=== PATIENT | female | born 1990 | race Caucasian/White ===

== ENCOUNTER → 2024-08-31 15:23 | Outpatient (CLI) | payer OTHER, SELFPAY ==
--- NOTE | 2024-09-01 13:33 | DIET.OUTPTC ---
Dietary Outpatient Consultation Note Consultation Date: 09/01/2024 Assessment: 34 y F referred to dietitian for obesity. Melisa is 8 months . Wants to ensure she is getting adequate nutrition for while supporting good health and would like to explore more variety in diet/cooking variety. Hx of yo-yo dieting with little fci success. Struggling with body image. Note no current N/V/D/C. Reports around a year ago having abd pain and some bloody stools with 2 colonoscopies done with no significant findings besides being told she was lactose intolerant. However, has had dairy recently with no symptoms. Diet recall: 8-9a- coffee, wilder, 2 eggs L-skips - struggling to have time to eat herself with baby Snack (~4p): granola bar or pieces of deli turkey D-meat/poultry and green beans Feels hungry with 1 hour after dinner, has snacks Ht: 5 ft 6 in Wt: 194 lb 2 oz BMI: 31.3 UBW: - Nutrition Diagnosis: Nutrition related knowledge deficit r/t no formal nutrition educ, difficulty finding sustainable eating pattern aeb pt report Interventions: discussed following topics and provided resources 1. Intuitive eating/sustainable eating 2. Macro distribution/Balanced meals in line with Mediterranean pattern/myplate method 3. Importance of carbs, portion of carbs, choosing carbs, fiber, amounts, types 4. Brainstorming new meals to create variety Goals: 1. Have a no-prep needed lunch with carb/protein/fiber (options and barriers discussed) 2. Include whole grain carb/starchy veg into dinner (2/3-1c) 3. Try new dinner recipe 1-2x/wk Monitoring/Evaluations: f/u 6-8 wks Electronically Signed by: Elda Cunningham 09/01/24 13:33 Clinical Dietitian [address] [address]
== END ==
PROVIDERS: PCP Family Medicine; Referring Provider Family Medicine
DX: E66.811 Obesity, class 1 (principal); Z68.31 Body mass index [BMI] 31.0-31.9, adult; Z71.3 Dietary counseling and surveillance
CPT/HCPCS: 97802

== ENCOUNTER → 2025-01-08 11:38 | Outpatient (CLI) | payer OTHER, SELFPAY ==
--- NOTE | 2025-01-08 11:39 | DI.RAD.S_ITS ---
PROCEDURE: XR ANKLE LT MIN 3V INDICATIONS: left ankle injury TECHNIQUE: 3 views of the ankle were acquired. COMPARISON: None. FINDINGS: Bones: No fractures or dislocations. Ankle mortise is normally aligned. No suspicious bony lesions. Soft tissues: No tibiotalar joint effusion. Achilles tendon appears normal. IMPRESSION: No acute bony abnormality or significant effusion. Dictated by: Palomo Wilkinson M.D. on 01/08/2025 at 12:23 Approved by: Palomo Wilkinson M.D. on 01/08/2025 at 12:23
== END ==
PROVIDERS: PCP Family Medicine; Referring Provider Physician Assistant; Visit Provider Physician Assistant
DX: S99.912A Unspecified injury of left ankle, initial encounter (principal)
CPT/HCPCS: 73610

== ENCOUNTER → 2025-01-18 16:29 | Outpatient (CLI) | payer OTHER, SELFPAY ==
[2025-01-18 16:50] LABS: Add Manual Diff / Slide Review NO; Basophils Absolute Auto 0 /uL (0-100); Basophils Percent Auto 0.4 % (0-2); Eosinophils Absolute Auto 100 /uL (0-450); Eosinophils Percent Auto 0.8 % (2-4); Hematocrit 35.8 % (36-46); Hemoglobin 12.1 g/dL (12.0-16.0); Lymphocytes Absolute Auto 2300 /uL (1100-4500); Lymphocytes Percent Auto 25.3 % (25-40); Mean Corpuscular HGB Conc 33.8 % (30-36); Mean Corpuscular Hemoglobin 28.7 PG (26-34); Mean Corpuscular Volume 84.9 fL (80-100); Monocytes Absolute Auto 600 /uL (0-900); Monocytes Percent Auto 6.4 % (3-14); Neutrophils Absolute Auto 6100 /uL (1500-7000); Neutrophils Percent Auto 67.1 % (50-75); Platelet Count 334 X10^3/uL (150-400); Red Blood Cell Count 4.21 X10^6/uL (4.0-5.2); Red Cell Distribution Width 13.1 % (11.6-14.8); White Blood Cell Count 9.1 X10^3/uL (4.5-11.0)
[2025-01-18 17:32] LABS: Alanine Aminotransferase 23 IU/L (<35); Albumin 4.6 g/dL (3.5-5.0); Albumin Globulin Ratio 1.9 (1.0-2.8); Alkaline Phosphatase 74 U/L (38-126); Aspartate Aminotransferase 27 IU/L (14-36); BUN Creatinine Ratio 14.5 (6-22); Bilirubin Total 0.4 mg/dL (0.2-1.3); Blood Urea Nitrogen 11 mg/dL (7-17); Calcium 9.4 mg/dL (8.4-10.2); Carbon Dioxide 22 mmol/L (22-32); Chloride 106 mmol/L (98-107); Cholesterol 186 mg/dL (140-199); Estimated Glomerular Filt Rate > 60 mL/min (>60); Globulin 2.4 g/dL (1.7-4.1); Glucose 100 mg/dL (70-99); HDL Cholesterol 65 mg/dL (40-60); HEMOLYSIS < 15 (0-50); LDL Cholesterol Calculated 101 mg/dL (<100); Potassium 4.2 mmol/L (3.4-5.1); Sodium 138 mmol/L (137-145); Triglycerides 100 mg/dL (35-150)
== END ==
LOC: LAB 16:30
PROVIDERS: Family Provider Family Medicine; PCP Family Medicine; Referring Provider Family Medicine; Visit Provider Family Medicine
DX: E78.5 Hyperlipidemia, unspecified (principal); E66.811 Obesity, class 1
CPT/HCPCS: 36415; 80053; 80061; 85025

== ENCOUNTER 2025-04-25 16:15 | Outpatient (RCR) | payer OTHER, SELFPAY ==
--- NOTE | 2025-02-08 18:09 | PT.OIE ---
Current Diagnoses Unspecified injury of left ankle, initial encounter (02/08/25) Past Medical History (Last Updated 06/14/24 @ 20:15 by Tangela Townsend) Ankle pain (~2005) Depression (~2002) AAKASH (generalized anxiety disorder) (~2017) GERD (gastroesophageal reflux disease) Heavy menstrual period (~2014) Irritable bowel syndrome (~2018) MDD (major depressive disorder) Neck muscle spasm (~2014) Ovarian cyst (~2019) Painful menstrual periods (~2014) Visit Care Team Role Provider Type Amelia Lutz MD Attending Provider Physician Family Provider Primary Care Provider Referring Provider Specialty: Family Practice CHIEF SCIENCE OFFICER Address: [address] [place] [address], [id number] Email: [email or web address] Physical Therapy Initial Evaluation PT-OP-A Visit Information Start: 02/08/25 15:37 Freq: Status: Active Protocol: Document 02/08/25 15:46 MANAGED CARE SPECIALIST (Rec: 02/08/25 18:06 MANAGED CARE SPECIALIST Laptop) Out-Patient Physical Therapy Visit Information Visit Information Visit Type Initial Evaluation Visit Start Time 16:15 Visit Stop Time 15:13 Visit Number 1 Number of RENEWABLE ENERGY TRADER Visits 0 Evaluation Information Evaluation Date 02/08/25 Precautions Precautions None PT-OP-B Current Condition Start: 02/08/25 15:37 Freq: Status: Active Protocol: Document 02/08/25 15:46 MANAGED CARE SPECIALIST (Rec: 02/08/25 18:06 MANAGED CARE SPECIALIST Laptop) Current Condition History of Current Condition Onset Date 01/07/25 Current Complaints L ankle pain/instability History of Current Condition Was trying to get something off of a tall cabinet, jumped, and landed down on L ankle with pain. Has had multiple ankle sprains in B ankles from soccer in high school and can often walk them off but this time could not. Had a walking boot that she wore for 10 days per doctor, then bought a supportive TOMMIE brace that she wore but still feels very instable. Has a 1 year old baby at home, not currently working. Has 5 RITESH with L HR, 2 stairs into sons room with L HR. Prior Treatments and Tests Imaging negative for fx Treatment Goals Patient/Caregiver Goals To be able to move around again without ankle feeling unstable and being careful, including navigating stairs at home. [facility] goal is to be able to run for exercise again. PT-OP-C Subjective Start: 02/08/25 15:37 Freq: Status: Active Protocol: Document 02/08/25 15:46 MANAGED CARE SPECIALIST (Rec: 02/08/25 18:06 MANAGED CARE SPECIALIST Laptop) Patient Questionnaires Lower Extremity Functional Scale LEFS Score 58/80 OP-PT Pain Assessment Comments Pain Comments L ankle feels achy while amb , 3-4/5 to L lateral malleoli and up lateral lower leg PT-OP-D Balance Start: 02/08/25 15:37 Freq: Status: Active Protocol: Document 02/08/25 15:46 MANAGED CARE SPECIALIST (Rec: 02/08/25 18:06 MANAGED CARE SPECIALIST Laptop) Balance Tests Single Limb Standing Single Limb- Right 57s Single Limb- Left 15s PT-OP-F Manual Assessment Start: 02/08/25 15:37 Freq: Status: Active Protocol: Document 02/08/25 15:46 MANAGED CARE SPECIALIST (Rec: 02/08/25 18:06 MANAGED CARE SPECIALIST Laptop) Manual Assessments Soft Tissue Assessment Soft Tissue Mobility Assessment TTP to L ant tib muscle belly and L fib longus muscle belly/ tendon, mild edema noted to L lateral malleolus PT-OP-G Mobility & Gait Start: 02/08/25 15:37 Freq: Status: Active Protocol: Document 02/08/25 15:46 MANAGED CARE SPECIALIST (Rec: 02/08/25 18:06 MANAGED CARE SPECIALIST Laptop) OP Gait Assessment Comments Gait Comments Amb without AD, decreased L loading response and early toe off Stair Climbing Evaluation Comments Stair Climbing Comments 4x6 stairs: Ascend: Normal reciprocal pattern without rails Descend: Step to pattern leading with RLE with heavy reliance on BUEs d/t instability in R ankle PT-OP-K Range of Motion Start: 02/08/25 15:45 Freq: Status: Active Protocol: Document 02/08/25 15:46 MANAGED CARE SPECIALIST (Rec: 02/08/25 18:06 MANAGED CARE SPECIALIST Laptop) Knee Goniometric Range of Motion Knee ROM Limitations Comments WNL Ankle and Foot Goniometric Range of Motion Ankle and Foot ROM Limitations ROM Limitations Soft Tissue Tightness,Pain Comments L ankle active DF -10 degrees, passive DF 15 degrees R ankle active DF 3 degrees, passive DF 8 degrees L PF active 45 degrees R PF active 50 degrees L eversion active 28 degrees, inversion active 42 degrees R eversion active 28 degrees, inversion active 44 degrees PT-OP-M Strength Start: 02/08/25 15:45 Freq: Status: Active Protocol: Document 02/08/25 15:46 MANAGED CARE SPECIALIST (Rec: 02/08/25 18:06 MANAGED CARE SPECIALIST Laptop) Hip Strength Hip Manual Muscle Testing L Flexion (L2) 4- Good- Extension (S1) 4- Good- Abduction 4+ Good+ R Flexion (L2) 4 Good Extension (S1) 4 Good Abduction 4- Good- Knee Strength Knee Manual Muscle Testing L Flexion (S2) 4 Good Extension (L3) 5 Normal Comments pain free R Flexion (S2) 4+ Good+ Extension (L3) 5 Normal Ankle/Foot Strength Ankle and Foot Manual Muscle Testing L Dorsiflexion (L4) 4 Good Plantarflexion (S1) 4- Good- Inversion 4- Good- Eversion (S1) 5 Normal Comments eversion without pain, DF and inversion with pain R Dorsiflexion (L4) 4+ Good+ Plantarflexion (S1) 4+ Good+ Inversion 4+ Good+ Eversion (S1) 5 Normal PT-OP-Q Treatments Start: 02/08/25 15:45 Freq: Status: Active Protocol: Document 02/08/25 15:46 MANAGED CARE SPECIALIST (Rec: 02/08/25 18:06 MANAGED CARE SPECIALIST Laptop) Therapeutic Exercises Sidelying Exercises Clamshells Side bilateral Reps/Minutes 10x3 Comments TC on hip to prevent roll back Sitting Exercises Ankle TB Sitting Exercise Name Resisted DF Side left Resistance Level 1 band Reps/Minutes 10x2 Standing Exercises Heel Raises Side bilateral Equipment Used balance on wall Reps/Minutes 10x2 Comments B at same time for support at L Gait Training Gait Activity Stair training Device Used 6 stairs Level of Assistance spv Distance/Duration 4 Comments Edu on step to pattern to descend leading with LLE vs RLE PT-OP-T Assessment and Plan Start: 02/08/25 15:45 Freq: Status: Active Protocol: Document 02/08/25 15:46 MANAGED CARE SPECIALIST (Rec: 02/08/25 18:06 MANAGED CARE SPECIALIST Laptop) Physical Therapy Assessment Rehab Potential Rehabilitation Potential Good Evaluation Complexity Number of Personal Factors/Comorbidities 1-2 Number of Body Systems Impaired 1-2 Clinical Presentation at Evaluation Stable Impairments Impairments Activity Tolerance,Balance, Edema,Functional Activities, Functional Mobility,Gait,Pain, ROM,Soft Tissue Mobility, Strength Goals 3 Impairment Pain on stairs Short Term Goal (STG) Pt will descend 4x6 stairs with reciprocal pattern using B HRs with min impairment STG Duration 6 weeks Correction Goal (LTG) Pt will descend 4x6 stairs with reciprocal pattern without HRs without impairment LTG Duration 12 weeks 2 Impairment L ankle strength Short Term Goal (STG) Pt will perform L ankle SLS for 30s to improve L ankle strength and balance STG Duration 6 weeks Correction Goal (LTG) Pt will perform L ankle SLS for 60s to improve L ankle strength and balance LTG Duration 12 weeks 1 Impairment L ankle ROM Short Term Goal (STG) Pt will improve L ankle active DF to -3 degrees to improve function STG Duration 6 weeks Correction Goal (LTG) Pt will improve L ankle active DF to 3 degrees to improve function LTG Duration 12 weeks Assessment Summary Assessment Pt presents with decreased L ankle strength and ROM, limited by soft tissue restrictions and pain, B hip and knee weakness, decreased balance, and impaired gait pattern. Pt will highly benefit from skilled PT intervention to address deficits and improve function. Physical Therapy Plan Frequency and Duration Frequency of Treatment 2x/Week Duration of treatment (weeks) 12 Plan of Care Start Date 02/08/25 Plan of Care End Date 05/03/25 Therapeutic Interventions Therapeutic Interventions Balance Training,Gait Training ,Home Exercise Program,Joint Mobilizations,Manual Therapy, Neuromuscular Re-education, Patient/Caregiver Education, Soft Tissue Mobilization, Taping,Therapeutic Activities, Therapeutic Exercises Modalities Cold Pack/Ice Massage,Hot Packs,Infrared Therapy, Ultrasound Next Visit Focus/Plan Next Note Type Treatment Note Next Visit Plan B hip strengthening, STM to L ant tib/gastroc, L gastroc stretching
--- NOTE | 2025-02-08 18:09 | PT.OPPOC ---
Physical, Occupational & Speech Therapy At [facility] Current Diagnoses Unspecified injury of left ankle, initial encounter (02/08/25) Visit Care Team Role Provider Type Amelia Lutz MD Attending Provider Physician Family Provider Primary Care Provider Referring Provider Specialty: Family Practice POTATO CHIP COOKER MACHINE Address: [address] [place] [address], [facility] Email: [email or web address] Plan Of Care PT-OP-B Current Condition Start: 02/08/25 15:37 Freq: Status: Active Protocol: Document 02/08/25 15:46 HEARING CONSULTANT (Rec: 02/08/25 18:06 HEARING CONSULTANT Laptop) Current Condition History of Current Condition Onset Date 01/07/25 Current Complaints L ankle pain/instability History of Current Condition Was trying to get something off of a tall cabinet, jumped, and landed down on L ankle with pain. Has had multiple ankle sprains in B ankles from soccer in high school and can often walk them off but this time could not. Had a walking boot that she wore for 10 days per doctor, then bought a supportive TOMMIE brace that she wore but still feels very instable. Has a 1 year old baby at home, not currently working. Has 5 RITESH with L HR, 2 stairs into sons room with L HR. Prior Treatments and Tests Imaging negative for fx Treatment Goals Patient/Caregiver Goals To be able to move around again without ankle feeling unstable and being careful, including navigating stairs at home. [facility] goal is to be able to run for exercise again. PT-OP-T Assessment and Plan Start: 02/08/25 15:45 Freq: Status: Active Protocol: Document 02/08/25 15:46 HEARING CONSULTANT (Rec: 02/08/25 18:06 HEARING CONSULTANT Laptop) Physical Therapy Assessment Rehab Potential Rehabilitation Potential Good Evaluation Complexity Number of Personal Factors/Comorbidities 1-2 Number of Body Systems Impaired 1-2 Clinical Presentation at Evaluation Stable Impairments Impairments Activity Tolerance,Balance, Edema,Functional Activities, Functional Mobility,Gait,Pain, ROM,Soft Tissue Mobility, Strength Goals 3 Impairment Pain on stairs Short Term Goal (STG) Pt will descend 4x6 stairs with reciprocal pattern using B HRs with min impairment STG Duration 6 weeks Clip And Hanger Attacher Goal (LTG) Pt will descend 4x6 stairs with reciprocal pattern without HRs without impairment LTG Duration 12 weeks 2 Impairment L ankle strength Short Term Goal (STG) Pt will perform L ankle SLS for 30s to improve L ankle strength and balance STG Duration 6 weeks Clip And Hanger Attacher Goal (LTG) Pt will perform L ankle SLS for 60s to improve L ankle strength and balance LTG Duration 12 weeks 1 Impairment L ankle ROM Short Term Goal (STG) Pt will improve L ankle active DF to -3 degrees to improve function STG Duration 6 weeks Clip And Hanger Attacher Goal (LTG) Pt will improve L ankle active DF to 3 degrees to improve function LTG Duration 12 weeks Assessment Summary Assessment Pt presents with decreased L ankle strength and ROM, limited by soft tissue restrictions and pain, B hip and knee weakness, decreased balance, and impaired gait pattern. Pt will highly benefit from skilled PT intervention to address deficits and improve function. Physical Therapy Plan Frequency and Duration Frequency of Treatment 2x/Week Duration of treatment (weeks) 12 Plan of Care Start Date 02/08/25 Plan of Care End Date 05/03/25 Therapeutic Interventions Therapeutic Interventions Balance Training,Gait Training ,Home Exercise Program,Joint Mobilizations,Manual Therapy, Neuromuscular Re-education, Patient/Caregiver Education, Soft Tissue Mobilization, Taping,Therapeutic Activities, Therapeutic Exercises Modalities Cold Pack/Ice Massage,Hot Packs,Infrared Therapy, Ultrasound Next Visit Focus/Plan Next Note Type Treatment Note Next Visit Plan B hip strengthening, STM to L ant tib/gastroc, L gastroc stretching Plan of Care Dates Plan of Care Start Date 02/08/25 Plan of Care End Date 05/03/25 Electronically Signed by: Marcia Álvarez PT 02/08/25 [id number] If you are in agreement with this Plan of Care, please return a signed and dated copy. I have reviewed this Plan of Care and certify that the skilled therapy services above are required to meet the patient?s needs. Physician Signature Date Printed Name and Credentials Clinical Instructor Signature Printed Name and Credentials
--- NOTE | 2025-02-21 17:49 | PT.OTN ---
Current Diagnoses Unspecified injury of left ankle, initial encounter (02/21/25) Physical Therapy Treatment Note PT-OP-A Visit Information Start: 02/08/25 15:37 Freq: Status: Active Protocol: Document 02/21/25 16:24 FILLER BLOCK INSERTER REMOVER (Rec: 02/21/25 17:49 FILLER BLOCK INSERTER REMOVER Laptop) Out-Patient Physical Therapy Visit Information Visit Information Visit Type Treatment Note Visit Start Time 16:20 Visit Stop Time 15:06 Visit Number 2 Number of SUPERVISOR SANDBLASTER Visits 0 Evaluation Information Evaluation Date 02/08/25 Precautions Precautions None PT-OP-B Current Condition Start: 02/08/25 15:37 Freq: Status: Active Protocol: Document 02/08/25 15:46 FILLER BLOCK INSERTER REMOVER (Rec: 02/08/25 18:06 FILLER BLOCK INSERTER REMOVER Laptop) Current Condition History of Current Condition Onset Date 01/07/25 Current Complaints L ankle pain/instability History of Current Was trying to get something off of a tall cabinet, Condition jumped, and landed down on L ankle with pain. Has had multiple ankle sprains in B ankles from soccer in high school and can often walk them off but this time could not. Had a walking boot that she wore for 10 days per doctor, then bought a supportive TOMMIE brace that she wore but still feels very instable. Has a 1 year old baby at home, not currently working. Has 5 RITESH with L HR, 2 stairs into sons room with L HR. Prior Treatments and Imaging negative for fx Tests Treatment Goals Patient/Caregiver To be able to move around again without ankle feeling Goals unstable and being careful, including navigating stairs at home. residential goal is to be able to run for exercise again. PT-OP-C Subjective Start: 02/08/25 15:37 Freq: Status: Active Protocol: Document 02/21/25 16:24 FILLER BLOCK INSERTER REMOVER (Rec: 02/21/25 17:49 FILLER BLOCK INSERTER REMOVER Laptop) OP-PT Subjective Patient Comments Patient Comments Pt reports increased pain today at 4/10 d/t family visiting this weekend and increased activity. Pt reports she has been doing her HEP and it has been going well but resisted PF feels limited d/t ant ankle tightness. PT-OP-D Balance Start: 02/08/25 15:37 Freq: Status: Active Protocol: Document 02/08/25 15:46 FILLER BLOCK INSERTER REMOVER (Rec: 02/08/25 18:06 FILLER BLOCK INSERTER REMOVER Laptop) Balance Tests Single Limb Standing Single Limb- Right 57s Single Limb- Left 15s PT-OP-F Manual Assessment Start: 02/08/25 15:37 Freq: Status: Active Protocol: Document 02/08/25 15:46 FILLER BLOCK INSERTER REMOVER (Rec: 02/08/25 18:06 FILLER BLOCK INSERTER REMOVER Laptop) Manual Assessments Soft Tissue Assessment Soft Tissue Mobility TTP to L ant tib muscle belly and L fib longus muscle Assessment belly/tendon, mild edema noted to L lateral malleolus PT-OP-G Mobility & Gait Start: 02/08/25 15:37 Freq: Status: Active Protocol: Document 02/08/25 15:46 FILLER BLOCK INSERTER REMOVER (Rec: 02/08/25 18:06 FILLER BLOCK INSERTER REMOVER Laptop) OP Gait Assessment Comments Gait Comments Amb without AD, decreased L loading response and early toe off Stair Climbing Evaluation Comments Stair Climbing 4x6 stairs: Comments Ascend: Normal reciprocal pattern without rails Descend: Step to pattern leading with RLE with heavy reliance on BUEs d/t instability in R ankle PT-OP-K Range of Motion Start: 02/08/25 15:45 Freq: Status: Active Protocol: Document 02/08/25 15:46 FILLER BLOCK INSERTER REMOVER (Rec: 02/08/25 18:06 FILLER BLOCK INSERTER REMOVER Laptop) Knee Goniometric Range of Motion Knee ROM Limitations Comments WNL Ankle and Foot Goniometric Range of Motion Ankle and Foot ROM Limitations ROM Limitations Soft Tissue Tightness,Pain Comments L ankle active DF -10 degrees, passive DF 15 degrees R ankle active DF 3 degrees, passive DF 8 degrees L PF active 45 degrees R PF active 50 degrees L eversion active 28 degrees, inversion active 42 degrees R eversion active 28 degrees, inversion active 44 degrees PT-OP-M Strength Start: 02/08/25 15:45 Freq: Status: Active Protocol: Document 02/08/25 15:46 FILLER BLOCK INSERTER REMOVER (Rec: 02/08/25 18:06 FILLER BLOCK INSERTER REMOVER Laptop) Hip Strength Hip Manual Muscle Testing L Flexion (L2) 4- Good- Extension (S1) 4- Good- Abduction 4+ Good+ R Flexion (L2) 4 Good Extension (S1) 4 Good Abduction 4- Good- Knee Strength Knee Manual Muscle Testing L Flexion (S2) 4 Good Extension (L3) 5 Normal Comments pain free R Flexion (S2) 4+ Good+ Extension (L3) 5 Normal Ankle/Foot Strength Ankle and Foot Manual Muscle Testing L Dorsiflexion (L4) 4 Good Plantarflexion (S1) 4- Good- Inversion 4- Good- Eversion (S1) 5 Normal Comments eversion without pain, DF and inversion with pain R Dorsiflexion (L4) 4+ Good+ Plantarflexion (S1) 4+ Good+ Inversion 4+ Good+ Eversion (S1) 5 Normal PT-OP-Q Treatments Start: 02/08/25 15:45 Freq: Status: Active Protocol: Document 02/21/25 16:24 FILLER BLOCK INSERTER REMOVER (Rec: 02/21/25 17:49 FILLER BLOCK INSERTER REMOVER Laptop) Therapeutic Exercises Sidelying Exercises Clamshells Side bilateral Comments TC on hip to prevent roll back Standing Exercises Hip Ext Side bilateral Reps/Minutes x10 Comments Added to HEP Hip Abd Side bilateral Reps/Minutes x10 Comments Added to HEP Marching Side bilateral Reps/Minutes x10 Comments Added to HEP Gastroc Stretch Standing Exercise Wall stretch Name Side left Reps/Minutes 60s x2 Comments Added to HEP Manual Therapy Treatment Consent Patient gave verbal Yes consent for manual treatment Soft Tissue Mobilization Ant Tib Body Location L distal ant tib Mobilization Type Myofascial Release,Rolling,Other Intensity/Depth Superficial Body Position Supine Comments +ice massage with good tolerance Joint Mobilizations Talus Joint talus Direction ant>post Grade IV Body Position Supine Reps/Duration 10 with 5s hold Comments with passive DF for gastroc stretch PT-OP-T Assessment and Plan Start: 02/08/25 15:45 Freq: Status: Active Protocol: Document 02/21/25 16:24 FILLER BLOCK INSERTER REMOVER (Rec: 02/21/25 17:49 FILLER BLOCK INSERTER REMOVER Laptop) Physical Therapy Assessment Impairments Impairments Activity Tolerance,Balance,Edema,Functional Activities, Functional Mobility,Gait,Pain,ROM,Soft Tissue Mobility, Strength Goals 3 Impairment Pain on stairs Short Term Goal (STG Pt will descend 4x6 stairs with reciprocal pattern ) using B HRs with min impairment STG Duration 6 weeks Senior Living Goal (LTG) Pt will descend 4x6 stairs with reciprocal pattern without HRs without impairment LTG Duration 12 weeks 2 Impairment L ankle strength Short Term Goal (STG Pt will perform L ankle SLS for 30s to improve L ankle ) strength and balance STG Duration 6 weeks Multi Operation Forming Machine Setter Goal (LTG) Pt will perform L ankle SLS for 60s to improve L ankle strength and balance LTG Duration 12 weeks 1 Impairment L ankle ROM Short Term Goal (STG Pt will improve L ankle active DF to -3 degrees to ) improve function STG Duration 6 weeks Multi Operation Forming Machine Setter Goal (LTG) Pt will improve L ankle active DF to 3 degrees to improve function LTG Duration 12 weeks Assessment Summary Assessment Pt tolerated ice massage better than STM to L ant tib. HEP reviewed and educated on how to progress as needed d/t only one session next week with new gastroc stretch and standing 3way hip HEP handout given. Physical Therapy Plan Frequency and Duration Frequency of 2x/Week Treatment Duration of 12 treatment (weeks) Plan of Care Start 02/08/25 Date Plan of Care End 05/03/25 Date Therapeutic Interventions Therapeutic Balance Training,Gait Training,Home Exercise Program, Interventions Joint Mobilizations,Manual Therapy,Neuromuscular Re- education,Patient/Caregiver Education,Soft Tissue Mobilization,Taping,Therapeutic Activities,Therapeutic Exercises Modalities Cold Pack/Ice Massage,Hot Packs,Infrared Therapy, Ultrasound Next Visit Focus/Plan Next Note Type Treatment Note Next Visit Plan Review HEP and advance as needed, STM to L ant tib/ gastroc, standing on foam, shuttle
--- NOTE | 2025-02-21 19:15 | PT.OIE ---
Current Diagnoses Unspecified injury of left ankle, initial encounter (02/21/25) Past Medical History (Last Updated 06/14/24 @ 20:15 by Tangela Townsend) Ankle pain (~2005) Depression (~2002) AAKASH (generalized anxiety disorder) (~2017) GERD (gastroesophageal reflux disease) Heavy menstrual period (~2014) Irritable bowel syndrome (~2018) MDD (major depressive disorder) Neck muscle spasm (~2014) Ovarian cyst (~2019) Painful menstrual periods (~2014) Visit Care Team Role Provider Type Amelia Lutz MD Attending Provider Physician Family Provider Primary Care Provider Referring Provider Specialty: Family Practice BUSINESS SERVICES VICE PRESIDENT Address: [address] [place] [address], [id number] Email: [email or web address] Physical Therapy Initial Evaluation PT-OP-A Visit Information Start: 02/08/25 15:37 Freq: Status: Active Protocol: Document 02/21/25 16:24 ELECTRICAL PRODUCTS ENGINEER (Rec: 02/21/25 17:49 ELECTRICAL PRODUCTS ENGINEER Laptop) Out-Patient Physical Therapy Visit Information Visit Information Visit Type Treatment Note Visit Start Time 16:20 Visit Stop Time 15:06 Visit Number 2 Number of CATTLE BRANDER Visits 0 Evaluation Information Evaluation Date 02/08/25 Precautions Precautions None PT-OP-B Current Condition Start: 02/08/25 15:37 Freq: Status: Active Protocol: Document 02/08/25 15:46 ELECTRICAL PRODUCTS ENGINEER (Rec: 02/08/25 18:06 ELECTRICAL PRODUCTS ENGINEER Laptop) Current Condition History of Current Condition Onset Date 01/07/25 Current Complaints L ankle pain/instability History of Current Was trying to get something off of a tall cabinet, Condition jumped, and landed down on L ankle with pain. Has had multiple ankle sprains in B ankles from soccer in high school and can often walk them off but this time could not. Had a walking boot that she wore for 10 days per doctor, then bought a supportive TOMMIE brace that she wore but still feels very instable. Has a 1 year old baby at home, not currently working. Has 5 RITESH with L HR, 2 stairs into sons room with L HR. Prior Treatments and Imaging negative for fx Tests Treatment Goals Patient/Caregiver To be able to move around again without ankle feeling Goals unstable and being careful, including navigating stairs at home. USP goal is to be able to run for exercise again. PT-OP-C Subjective Start: 02/08/25 15:37 Freq: Status: Active Protocol: Document 02/21/25 16:24 ELECTRICAL PRODUCTS ENGINEER (Rec: 02/21/25 17:49 ELECTRICAL PRODUCTS ENGINEER Laptop) OP-PT Subjective Patient Comments Patient Comments Pt reports increased pain today at 4/10 d/t family visiting this weekend and increased activity. Pt reports she has been doing her HEP and it has been going well but resisted PF feels limited d/t ant ankle tightness. PT-OP-D Balance Start: 02/08/25 15:37 Freq: Status: Active Protocol: Document 02/08/25 15:46 ELECTRICAL PRODUCTS ENGINEER (Rec: 02/08/25 18:06 ELECTRICAL PRODUCTS ENGINEER Laptop) Balance Tests Single Limb Standing Single Limb- Right 57s Single Limb- Left 15s PT-OP-F Manual Assessment Start: 02/08/25 15:37 Freq: Status: Active Protocol: Document 02/08/25 15:46 ELECTRICAL PRODUCTS ENGINEER (Rec: 02/08/25 18:06 ELECTRICAL PRODUCTS ENGINEER Laptop) Manual Assessments Soft Tissue Assessment Soft Tissue Mobility TTP to L ant tib muscle belly and L fib longus muscle Assessment belly/tendon, mild edema noted to L lateral malleolus PT-OP-G Mobility & Gait Start: 02/08/25 15:37 Freq: Status: Active Protocol: Document 02/08/25 15:46 ELECTRICAL PRODUCTS ENGINEER (Rec: 02/08/25 18:06 ELECTRICAL PRODUCTS ENGINEER Laptop) OP Gait Assessment Comments Gait Comments Amb without AD, decreased L loading response and early toe off Stair Climbing Evaluation Comments Stair Climbing 4x6 stairs: Comments Ascend: Normal reciprocal pattern without rails Descend: Step to pattern leading with RLE with heavy reliance on BUEs d/t instability in R ankle PT-OP-K Range of Motion Start: 02/08/25 15:45 Freq: Status: Active Protocol: Document 02/08/25 15:46 ELECTRICAL PRODUCTS ENGINEER (Rec: 02/08/25 18:06 ELECTRICAL PRODUCTS ENGINEER Laptop) Knee Goniometric Range of Motion Knee ROM Limitations Comments WNL Ankle and Foot Goniometric Range of Motion Ankle and Foot ROM Limitations ROM Limitations Soft Tissue Tightness,Pain Comments L ankle active DF -10 degrees, passive DF 15 degrees R ankle active DF 3 degrees, passive DF 8 degrees L PF active 45 degrees R PF active 50 degrees L eversion active 28 degrees, inversion active 42 degrees R eversion active 28 degrees, inversion active 44 degrees PT-OP-M Strength Start: 02/08/25 15:45 Freq: Status: Active Protocol: Document 02/08/25 15:46 ELECTRICAL PRODUCTS ENGINEER (Rec: 02/08/25 18:06 ELECTRICAL PRODUCTS ENGINEER Laptop) Hip Strength Hip Manual Muscle Testing L Flexion (L2) 4- Good- Extension (S1) 4- Good- Abduction 4+ Good+ R Flexion (L2) 4 Good Extension (S1) 4 Good Abduction 4- Good- Knee Strength Knee Manual Muscle Testing L Flexion (S2) 4 Good Extension (L3) 5 Normal Comments pain free R Flexion (S2) 4+ Good+ Extension (L3) 5 Normal Ankle/Foot Strength Ankle and Foot Manual Muscle Testing L Dorsiflexion (L4) 4 Good Plantarflexion (S1) 4- Good- Inversion 4- Good- Eversion (S1) 5 Normal Comments eversion without pain, DF and inversion with pain R Dorsiflexion (L4) 4+ Good+ Plantarflexion (S1) 4+ Good+ Inversion 4+ Good+ Eversion (S1) 5 Normal PT-OP-Q Treatments Start: 02/08/25 15:45 Freq: Status: Active Protocol: Document 02/21/25 16:24 ELECTRICAL PRODUCTS ENGINEER (Rec: 02/21/25 17:49 ELECTRICAL PRODUCTS ENGINEER Laptop) Therapeutic Exercises Sidelying Exercises Clamshells Side bilateral Comments TC on hip to prevent roll back Standing Exercises Hip Ext Side bilateral Reps/Minutes x10 Comments Added to HEP Hip Abd Side bilateral Reps/Minutes x10 Comments Added to HEP Marching Side bilateral Reps/Minutes x10 Comments Added to HEP Gastroc Stretch Standing Exercise Wall stretch Name Side left Reps/Minutes 60s x2 Comments Added to HEP Manual Therapy Treatment Consent Patient gave verbal Yes consent for manual treatment Soft Tissue Mobilization Ant Tib Body Location L distal ant tib Mobilization Type Myofascial Release,Rolling,Other Intensity/Depth Superficial Body Position Supine Comments +ice massage with good tolerance Joint Mobilizations Talus Joint talus Direction ant>post Grade IV Body Position Supine Reps/Duration 10 with 5s hold Comments with passive DF for gastroc stretch PT-OP-T Assessment and Plan Start: 02/08/25 15:45 Freq: Status: Active Protocol: Document 02/21/25 16:24 ELECTRICAL PRODUCTS ENGINEER (Rec: 02/21/25 17:49 ELECTRICAL PRODUCTS ENGINEER Laptop) Physical Therapy Assessment Impairments Impairments Activity Tolerance,Balance,Edema,Functional Activities, Functional Mobility,Gait,Pain,ROM,Soft Tissue Mobility, Strength Goals 3 Impairment Pain on stairs Short Term Goal (STG Pt will descend 4x6 stairs with reciprocal pattern ) using B HRs with min impairment STG Duration 6 weeks Intermediate Goal (LTG) Pt will descend 4x6 stairs with reciprocal pattern without HRs without impairment LTG Duration 12 weeks 2 Impairment L ankle strength Short Term Goal (STG Pt will perform L ankle SLS for 30s to improve L ankle ) strength and balance STG Duration 6 weeks Director Banking Goal (LTG) Pt will perform L ankle SLS for 60s to improve L ankle strength and balance LTG Duration 12 weeks 1 Impairment L ankle ROM Short Term Goal (STG Pt will improve L ankle active DF to -3 degrees to ) improve function STG Duration 6 weeks Intermediate Goal (LTG) Pt will improve L ankle active DF to 3 degrees to improve function LTG Duration 12 weeks Assessment Summary Assessment Pt tolerated ice massage better than STM to L ant tib. HEP reviewed and educated on how to progress as needed d/t only one session next week with new gastroc stretch and standing 3way hip HEP handout given. Physical Therapy Plan Frequency and Duration Frequency of 2x/Week Treatment Duration of 12 treatment (weeks) Plan of Care Start 02/08/25 Date Plan of Care End 05/03/25 Date Therapeutic Interventions Therapeutic Balance Training,Gait Training,Home Exercise Program, Interventions Joint Mobilizations,Manual Therapy,Neuromuscular Re- education,Patient/Caregiver Education,Soft Tissue Mobilization,Taping,Therapeutic Activities,Therapeutic Exercises Modalities Cold Pack/Ice Massage,Hot Packs,Infrared Therapy, Ultrasound Next Visit Focus/Plan Next Note Type Treatment Note Next Visit Plan Review HEP and advance as needed, STM to L ant tib/ gastroc, standing on foam, shuttle
--- NOTE | 2025-02-21 19:15 | PT.OPPOC ---
Physical, Occupational & Speech Therapy At [facility] Current Diagnoses Unspecified injury of left ankle, initial encounter (02/21/25) Visit Care Team Role Provider Type Amelia Lutz MD Attending Provider Physician Family Provider Primary Care Provider Referring Provider Specialty: Family Practice DRUM PRINTER Address: [address] [place] [address], [facility] Email: [email or web address] Plan Of Care PT-OP-B Current Condition Start: 02/08/25 15:37 Freq: Status: Active Protocol: Document 02/08/25 15:46 STONE CLEANER (Rec: 02/08/25 18:06 STONE CLEANER Laptop) Current Condition History of Current Condition Onset Date 01/07/25 Current Complaints L ankle pain/instability History of Current Was trying to get something off of a tall cabinet, Condition jumped, and landed down on L ankle with pain. Has had multiple ankle sprains in B ankles from soccer in high school and can often walk them off but this time could not. Had a walking boot that she wore for 10 days per doctor, then bought a supportive TOMMIE brace that she wore but still feels very instable. Has a 1 year old baby at home, not currently working. Has 5 RITESH with L HR, 2 stairs into sons room with L HR. Prior Treatments and Imaging negative for fx Tests Treatment Goals Patient/Caregiver To be able to move around again without ankle feeling Goals unstable and being careful, including navigating stairs at home. USP goal is to be able to run for exercise again. PT-OP-T Assessment and Plan Start: 02/08/25 15:45 Freq: Status: Active Protocol: Document 02/21/25 16:24 STONE CLEANER (Rec: 02/21/25 17:49 STONE CLEANER Laptop) Physical Therapy Assessment Impairments Impairments Activity Tolerance,Balance,Edema,Functional Activities, Functional Mobility,Gait,Pain,ROM,Soft Tissue Mobility, Strength Goals 3 Impairment Pain on stairs Short Term Goal (STG Pt will descend 4x6 stairs with reciprocal pattern ) using B HRs with min impairment STG Duration 6 weeks Skilled Nursing Goal (LTG) Pt will descend 4x6 stairs with reciprocal pattern without HRs without impairment LTG Duration 12 weeks 2 Impairment L ankle strength Short Term Goal (STG Pt will perform L ankle SLS for 30s to improve L ankle ) strength and balance STG Duration 6 weeks Cloth Bin Packer Goal (LTG) Pt will perform L ankle SLS for 60s to improve L ankle strength and balance LTG Duration 12 weeks 1 Impairment L ankle ROM Short Term Goal (STG Pt will improve L ankle active DF to -3 degrees to ) improve function STG Duration 6 weeks Cloth Bin Packer Goal (LTG) Pt will improve L ankle active DF to 3 degrees to improve function LTG Duration 12 weeks Assessment Summary Assessment Pt tolerated ice massage better than STM to L ant tib. HEP reviewed and educated on how to progress as needed d/t only one session next week with new gastroc stretch and standing 3way hip HEP handout given. Physical Therapy Plan Frequency and Duration Frequency of 2x/Week Treatment Duration of 12 treatment (weeks) Plan of Care Start 02/08/25 Date Plan of Care End 05/03/25 Date Therapeutic Interventions Therapeutic Balance Training,Gait Training,Home Exercise Program, Interventions Joint Mobilizations,Manual Therapy,Neuromuscular Re- education,Patient/Caregiver Education,Soft Tissue Mobilization,Taping,Therapeutic Activities,Therapeutic Exercises Modalities Cold Pack/Ice Massage,Hot Packs,Infrared Therapy, Ultrasound Next Visit Focus/Plan Next Note Type Treatment Note Next Visit Plan Review HEP and advance as needed, STM to L ant tib/ gastroc, standing on foam, shuttle Plan of Care Dates Plan of Care Start Date 02/08/25 Plan of Care End Date 05/03/25 Electronically Signed by: Marcia Álvarez, PT 02/21/25 0804 If you are in agreement with this Plan of Care, please return a signed and dated copy. I have reviewed this Plan of Care and certify that the skilled therapy services above are required to meet the patient?s needs. Physician Signature Date Printed Name and Credentials Clinical Instructor Signature Printed Name and Credentials
--- NOTE | 2025-02-28 18:44 | PT.OTN ---
Current Diagnoses Unspecified injury of left ankle, initial encounter (02/28/25) Physical Therapy Treatment Note PT-OP-A Visit Information Start: 02/08/25 15:37 Freq: Status: Active Protocol: Document 02/28/25 17:05 COMPLIANCE AND CONTROL ANALYST (Rec: 02/28/25 18:43 COMPLIANCE AND CONTROL ANALYST Laptop) Out-Patient Physical Therapy Visit Information Visit Information Visit Type Treatment Note Visit Start Time 17:02 Visit Stop Time 17:50 Visit Number 3 Number of EMERGENCY TECHNICIAN Visits 0 Evaluation Information Evaluation Date 02/08/25 Precautions Precautions None PT-OP-B Current Condition Start: 02/08/25 15:37 Freq: Status: Active Protocol: Document 02/08/25 15:46 COMPLIANCE AND CONTROL ANALYST (Rec: 02/08/25 18:06 COMPLIANCE AND CONTROL ANALYST Laptop) Current Condition History of Current Condition Onset Date 01/07/25 Current Complaints L ankle pain/instability History of Current Was trying to get something off of a tall cabinet, Condition jumped, and landed down on L ankle with pain. Has had multiple ankle sprains in B ankles from soccer in high school and can often walk them off but this time could not. Had a walking boot that she wore for 10 days per doctor, then bought a supportive TOMMIE brace that she wore but still feels very instable. Has a 1 year old baby at home, not currently working. Has 5 RITESH with L HR, 2 stairs into sons room with L HR. Prior Treatments and Imaging negative for fx Tests Treatment Goals Patient/Caregiver To be able to move around again without ankle feeling Goals unstable and being careful, including navigating stairs at home. USP goal is to be able to run for exercise again. PT-OP-C Subjective Start: 02/08/25 15:37 Freq: Status: Active Protocol: Document 02/28/25 17:05 COMPLIANCE AND CONTROL ANALYST (Rec: 02/28/25 18:43 COMPLIANCE AND CONTROL ANALYST Laptop) OP-PT Subjective Patient Comments Patient Comments Pt reports 0/10 pain today. Pt also reports she had signed up for kickball a while back and thought it didn 't start until April but it actually started earlier this week, outdoor but on flat firm surface, kicked with R LE, wore ankle support brace on L ankle, and jogged lightly to bases but noticed increased soreness after. States HEP stretches begin painfully but decrease after loosening up. PT-OP-D Balance Start: 02/08/25 15:37 Freq: Status: Active Protocol: Document 02/08/25 15:46 COMPLIANCE AND CONTROL ANALYST (Rec: 02/08/25 18:06 COMPLIANCE AND CONTROL ANALYST Laptop) Balance Tests Single Limb Standing Single Limb- Right 57s Single Limb- Left 15s PT-OP-F Manual Assessment Start: 02/08/25 15:37 Freq: Status: Active Protocol: Document 02/08/25 15:46 COMPLIANCE AND CONTROL ANALYST (Rec: 02/08/25 18:06 COMPLIANCE AND CONTROL ANALYST Laptop) Manual Assessments Soft Tissue Assessment Soft Tissue Mobility TTP to L ant tib muscle belly and L fib longus muscle Assessment belly/tendon, mild edema noted to L lateral malleolus PT-OP-G Mobility & Gait Start: 02/08/25 15:37 Freq: Status: Active Protocol: Document 02/08/25 15:46 COMPLIANCE AND CONTROL ANALYST (Rec: 02/08/25 18:06 COMPLIANCE AND CONTROL ANALYST Laptop) OP Gait Assessment Comments Gait Comments Amb without AD, decreased L loading response and early toe off Stair Climbing Evaluation Comments Stair Climbing 4x6 stairs: Comments Ascend: Normal reciprocal pattern without rails Descend: Step to pattern leading with RLE with heavy reliance on BUEs d/t instability in R ankle PT-OP-K Range of Motion Start: 02/08/25 15:45 Freq: Status: Active Protocol: Document 02/08/25 15:46 COMPLIANCE AND CONTROL ANALYST (Rec: 02/08/25 18:06 COMPLIANCE AND CONTROL ANALYST Laptop) Knee Goniometric Range of Motion Knee ROM Limitations Comments WNL Ankle and Foot Goniometric Range of Motion Ankle and Foot ROM Limitations ROM Limitations Soft Tissue Tightness,Pain Comments L ankle active DF -10 degrees, passive DF 15 degrees R ankle active DF 3 degrees, passive DF 8 degrees L PF active 45 degrees R PF active 50 degrees L eversion active 28 degrees, inversion active 42 degrees R eversion active 28 degrees, inversion active 44 degrees PT-OP-M Strength Start: 02/08/25 15:45 Freq: Status: Active Protocol: Document 02/08/25 15:46 COMPLIANCE AND CONTROL ANALYST (Rec: 02/08/25 18:06 COMPLIANCE AND CONTROL ANALYST Laptop) Hip Strength Hip Manual Muscle Testing L Flexion (L2) 4- Good- Extension (S1) 4- Good- Abduction 4+ Good+ R Flexion (L2) 4 Good Extension (S1) 4 Good Abduction 4- Good- Knee Strength Knee Manual Muscle Testing L Flexion (S2) 4 Good Extension (L3) 5 Normal Comments pain free R Flexion (S2) 4+ Good+ Extension (L3) 5 Normal Ankle/Foot Strength Ankle and Foot Manual Muscle Testing L Dorsiflexion (L4) 4 Good Plantarflexion (S1) 4- Good- Inversion 4- Good- Eversion (S1) 5 Normal Comments eversion without pain, DF and inversion with pain R Dorsiflexion (L4) 4+ Good+ Plantarflexion (S1) 4+ Good+ Inversion 4+ Good+ Eversion (S1) 5 Normal PT-OP-Q Treatments Start: 02/08/25 15:45 Freq: Status: Active Protocol: Document 02/28/25 17:05 COMPLIANCE AND CONTROL ANALYST (Rec: 02/28/25 18:43 COMPLIANCE AND CONTROL ANALYST Laptop) Cardio Equipment Recumbent Stepper (Sci-Fit) Duration (Minutes) 6 Resistance L5 Other BLEs only for ankle ROM warm up Therapeutic Exercises Standing Exercises Heel Raises Standing Exercise Single leg Name Side left Resistance body weight Reps/Minutes 10x2 Comments progressed HEP from resisted PF with TB Manual Therapy Treatment Consent Patient gave verbal Yes consent for manual treatment Soft Tissue Mobilization Gastroc Body Location L mid and lateral gastroc Body Position Prone Comments Cupping Ant Tib Body Location L ant tib Body Position Supine Comments Cupping Neuro Re-Education Treatment Balance Activities Wobble board Details Heel to toe taps x10 each Surface wobble board Reps/Duration x10 each direction Comments without UE support Foam Details 1. RLE taps on 4 step 2. RLE taps on 6 step 3. RLE taps on 6+12 step Surface Foam Reps/Duration x10 each activity Comments without UE support PT-OP-T Assessment and Plan Start: 02/08/25 15:45 Freq: Status: Active Protocol: Document 02/28/25 17:05 COMPLIANCE AND CONTROL ANALYST (Rec: 02/28/25 18:43 COMPLIANCE AND CONTROL ANALYST Laptop) Physical Therapy Assessment Impairments Impairments Activity Tolerance,Balance,Edema,Functional Activities, Functional Mobility,Gait,Pain,ROM,Soft Tissue Mobility, Strength Goals 3 Impairment Pain on stairs Short Term Goal (STG Pt will descend 4x6 stairs with reciprocal pattern ) using B HRs with min impairment STG Duration 6 weeks Electrifier Operator Goal (LTG) Pt will descend 4x6 stairs with reciprocal pattern without HRs without impairment LTG Duration 12 weeks 2 Impairment L ankle strength Short Term Goal (STG Pt will perform L ankle SLS for 30s to improve L ankle ) strength and balance STG Duration 6 weeks Electrifier Operator Goal (LTG) Pt will perform L ankle SLS for 60s to improve L ankle strength and balance LTG Duration 12 weeks 1 Impairment L ankle ROM Short Term Goal (STG Pt will improve L ankle active DF to -3 degrees to ) improve function STG Duration 6 weeks Electrifier Operator Goal (LTG) Pt will improve L ankle active DF to 3 degrees to improve function LTG Duration 12 weeks Progress Towards Goals Progress Towards Progressing Toward Goals Goals Assessment Summary Assessment Pt tolerated newly initiated cupping to L ant tib and gastroc, has progressed from resisted L PF with TB to single leg heel raises, and tolerated balance training. Physical Therapy Plan Frequency and Duration Frequency of 2x/Week Treatment Duration of 12 treatment (weeks) Plan of Care Start 02/08/25 Date Plan of Care End 05/03/25 Date Therapeutic Interventions Therapeutic Balance Training,Gait Training,Home Exercise Program, Interventions Joint Mobilizations,Manual Therapy,Neuromuscular Re- education,Patient/Caregiver Education,Soft Tissue Mobilization,Taping,Therapeutic Activities,Therapeutic Exercises Modalities Cold Pack/Ice Massage,Hot Packs,Infrared Therapy, Ultrasound Next Visit Focus/Plan Next Note Type Treatment Note Next Visit Plan Standing balance training, IASTM to L ant tib/gastroc, squats, shuttle
--- NOTE | 2025-03-06 22:13 | PT.OTN ---
Current Diagnoses Unspecified injury of left ankle, initial encounter (03/06/25) Physical Therapy Treatment Note PT-OP-A Visit Information Start: 02/08/25 15:37 Freq: Status: Active Protocol: Document 03/06/25 16:25 CERTIFIED VEHICLE FIRE INVESTIGATOR (Rec: 03/06/25 17:04 CERTIFIED VEHICLE FIRE INVESTIGATOR Laptop) Out-Patient Physical Therapy Visit Information Visit Information Visit Type Treatment Note Visit Start Time 16:20 Visit Stop Time 17:00 Visit Number 4 Number of TELE RN Visits 0 Evaluation Information Evaluation Date 02/08/25 Precautions Precautions None PT-OP-B Current Condition Start: 02/08/25 15:37 Freq: Status: Active Protocol: Document 02/08/25 15:46 CERTIFIED VEHICLE FIRE INVESTIGATOR (Rec: 02/08/25 18:06 CERTIFIED VEHICLE FIRE INVESTIGATOR Laptop) Current Condition History of Current Condition Onset Date 01/07/25 Current Complaints L ankle pain/instability History of Current Was trying to get something off of a tall cabinet, Condition jumped, and landed down on L ankle with pain. Has had multiple ankle sprains in B ankles from soccer in high school and can often walk them off but this time could not. Had a walking boot that she wore for 10 days per doctor, then bought a supportive TOMMIE brace that she wore but still feels very instable. Has a 1 year old baby at home, not currently working. Has 5 RITESH with L HR, 2 stairs into sons room with L HR. Prior Treatments and Imaging negative for fx Tests Treatment Goals Patient/Caregiver To be able to move around again without ankle feeling Goals unstable and being careful, including navigating stairs at home. [facility] goal is to be able to run for exercise again. PT-OP-C Subjective Start: 02/08/25 15:37 Freq: Status: Active Protocol: Document 03/06/25 16:25 CERTIFIED VEHICLE FIRE INVESTIGATOR (Rec: 03/06/25 17:04 CERTIFIED VEHICLE FIRE INVESTIGATOR Laptop) OP-PT Subjective Patient Comments Patient Comments Pt reports 3/10 in L ankle currently, reports ankle is feeling stronger and not as tight. PT-OP-D Balance Start: 02/08/25 15:37 Freq: Status: Active Protocol: Document 02/08/25 15:46 CERTIFIED VEHICLE FIRE INVESTIGATOR (Rec: 02/08/25 18:06 CERTIFIED VEHICLE FIRE INVESTIGATOR Laptop) Balance Tests Single Limb Standing Single Limb- Right 57s Single Limb- Left 15s PT-OP-F Manual Assessment Start: 02/08/25 15:37 Freq: Status: Active Protocol: Document 02/08/25 15:46 CERTIFIED VEHICLE FIRE INVESTIGATOR (Rec: 02/08/25 18:06 CERTIFIED VEHICLE FIRE INVESTIGATOR Laptop) Manual Assessments Soft Tissue Assessment Soft Tissue Mobility TTP to L ant tib muscle belly and L fib longus muscle Assessment belly/tendon, mild edema noted to L lateral malleolus PT-OP-G Mobility & Gait Start: 02/08/25 15:37 Freq: Status: Active Protocol: Document 02/08/25 15:46 CERTIFIED VEHICLE FIRE INVESTIGATOR (Rec: 02/08/25 18:06 CERTIFIED VEHICLE FIRE INVESTIGATOR Laptop) OP Gait Assessment Comments Gait Comments Amb without AD, decreased L loading response and early toe off Stair Climbing Evaluation Comments Stair Climbing 4x6 stairs: Comments Ascend: Normal reciprocal pattern without rails Descend: Step to pattern leading with RLE with heavy reliance on BUEs d/t instability in R ankle PT-OP-K Range of Motion Start: 02/08/25 15:45 Freq: Status: Active Protocol: Document 02/08/25 15:46 CERTIFIED VEHICLE FIRE INVESTIGATOR (Rec: 02/08/25 18:06 CERTIFIED VEHICLE FIRE INVESTIGATOR Laptop) Knee Goniometric Range of Motion Knee ROM Limitations Comments WNL Ankle and Foot Goniometric Range of Motion Ankle and Foot ROM Limitations ROM Limitations Soft Tissue Tightness,Pain Comments L ankle active DF -10 degrees, passive DF 15 degrees R ankle active DF 3 degrees, passive DF 8 degrees L PF active 45 degrees R PF active 50 degrees L eversion active 28 degrees, inversion active 42 degrees R eversion active 28 degrees, inversion active 44 degrees PT-OP-M Strength Start: 02/08/25 15:45 Freq: Status: Active Protocol: Document 02/08/25 15:46 CERTIFIED VEHICLE FIRE INVESTIGATOR (Rec: 02/08/25 18:06 CERTIFIED VEHICLE FIRE INVESTIGATOR Laptop) Hip Strength Hip Manual Muscle Testing L Flexion (L2) 4- Good- Extension (S1) 4- Good- Abduction 4+ Good+ R Flexion (L2) 4 Good Extension (S1) 4 Good Abduction 4- Good- Knee Strength Knee Manual Muscle Testing L Flexion (S2) 4 Good Extension (L3) 5 Normal Comments pain free R Flexion (S2) 4+ Good+ Extension (L3) 5 Normal Ankle/Foot Strength Ankle and Foot Manual Muscle Testing L Dorsiflexion (L4) 4 Good Plantarflexion (S1) 4- Good- Inversion 4- Good- Eversion (S1) 5 Normal Comments eversion without pain, DF and inversion with pain R Dorsiflexion (L4) 4+ Good+ Plantarflexion (S1) 4+ Good+ Inversion 4+ Good+ Eversion (S1) 5 Normal PT-OP-Q Treatments Start: 02/08/25 15:45 Freq: Status: Active Protocol: Document 03/06/25 16:25 CERTIFIED VEHICLE FIRE INVESTIGATOR (Rec: 03/06/25 17:04 CERTIFIED VEHICLE FIRE INVESTIGATOR Laptop) Cardio Equipment Recumbent Stepper (Sci-Fit) Duration (Minutes) 7 Resistance L5 Seat Position 3 Other BLEs only for ankle ROM warm up Manual Therapy Treatment Consent Patient gave verbal Yes consent for manual treatment Soft Tissue Mobilization Gastroc Body Location L mid and lateral gastroc Body Position Prone Comments Cupping and IASTM to achilles Ant Tib Body Location L ant tib Body Position Supine Comments Cupping Neuro Re-Education Treatment Balance Activities BOSU Details 1. Static standing, 2. mini squats Surface bosu Reps/Duration 1. 2 mins 2. x10 Comments no UEs, SBA PT-OP-T Assessment and Plan Start: 02/08/25 15:45 Freq: Status: Active Protocol: Document 03/06/25 16:25 CERTIFIED VEHICLE FIRE INVESTIGATOR (Rec: 03/06/25 17:04 CERTIFIED VEHICLE FIRE INVESTIGATOR Laptop) Physical Therapy Assessment Impairments Impairments Activity Tolerance,Balance,Edema,Functional Activities, Functional Mobility,Gait,Pain,ROM,Soft Tissue Mobility, Strength Goals 3 Impairment Pain on stairs Short Term Goal (STG Pt will descend 4x6 stairs with reciprocal pattern ) using B HRs with min impairment STG Duration 6 weeks Rail Assembler Goal (LTG) Pt will descend 4x6 stairs with reciprocal pattern without HRs without impairment LTG Duration 12 weeks Progress Towards Goals Progress Towards Progressing Toward Goals Goals Progress Comments improved ankle strength and tissue mobility Assessment Summary Assessment Pt with improved soft tissue mobility to L gastroc and ant tib, improved ankle strength and proprioception as seen with standing balance activities. Physical Therapy Plan Frequency and Duration Frequency of 2x/Week Treatment Duration of 12 treatment (weeks) Plan of Care Start 02/08/25 Date Plan of Care End 05/03/25 Date Therapeutic Interventions Therapeutic Balance Training,Gait Training,Home Exercise Program, Interventions Joint Mobilizations,Manual Therapy,Neuromuscular Re- education,Patient/Caregiver Education,Soft Tissue Mobilization,Taping,Therapeutic Activities,Therapeutic Exercises Modalities Cold Pack/Ice Massage,Hot Packs,Infrared Therapy, Ultrasound Next Visit Focus/Plan Next Note Type Treatment Note Next Visit Plan squats, shuttle recovery, standing balance
--- NOTE | 2025-03-08 20:19 | PT.OTN ---
Current Diagnoses Unspecified injury of left ankle, initial encounter (03/08/25) Physical Therapy Treatment Note PT-OP-A Visit Information Start: 02/08/25 15:37 Freq: Status: Active Protocol: Document 03/08/25 16:28 LUMBER KILN OPERATOR (Rec: 03/08/25 16:50 LUMBER KILN OPERATOR Laptop) Out-Patient Physical Therapy Visit Information Visit Information Visit Type Treatment Note Visit Note shortened session d/t therapist mistake on schedule Visit Start Time 16:20 Visit Stop Time 16:50 Visit Number 5 Number of PRINT PRODUCTION ASSOCIATE Visits 0 Evaluation Information Evaluation Date 02/08/25 Precautions Precautions None PT-OP-B Current Condition Start: 02/08/25 15:37 Freq: Status: Active Protocol: Document 02/08/25 15:46 LUMBER KILN OPERATOR (Rec: 02/08/25 18:06 LUMBER KILN OPERATOR Laptop) Current Condition History of Current Condition Onset Date 01/07/25 Current Complaints L ankle pain/instability History of Current Was trying to get something off of a tall cabinet, Condition jumped, and landed down on L ankle with pain. Has had multiple ankle sprains in B ankles from soccer in high school and can often walk them off but this time could not. Had a walking boot that she wore for 10 days per doctor, then bought a supportive TOMMIE brace that she wore but still feels very instable. Has a 1 year old baby at home, not currently working. Has 5 RITESH with L HR, 2 stairs into sons room with L HR. Prior Treatments and Imaging negative for fx Tests Treatment Goals Patient/Caregiver To be able to move around again without ankle feeling Goals unstable and being careful, including navigating stairs at home. [facility] goal is to be able to run for exercise again. PT-OP-C Subjective Start: 02/08/25 15:37 Freq: Status: Active Protocol: Document 03/08/25 16:28 LUMBER KILN OPERATOR (Rec: 03/08/25 16:50 LUMBER KILN OPERATOR Laptop) OP-PT Subjective Patient Comments Patient Comments Pt reports improved pain since the last session, currently 0/10. Patient Reported Improving Progress PT-OP-D Balance Start: 02/08/25 15:37 Freq: Status: Active Protocol: Document 02/08/25 15:46 LUMBER KILN OPERATOR (Rec: 02/08/25 18:06 LUMBER KILN OPERATOR Laptop) Balance Tests Single Limb Standing Single Limb- Right 57s Single Limb- Left 15s PT-OP-F Manual Assessment Start: 02/08/25 15:37 Freq: Status: Active Protocol: Document 02/08/25 15:46 LUMBER KILN OPERATOR (Rec: 02/08/25 18:06 LUMBER KILN OPERATOR Laptop) Manual Assessments Soft Tissue Assessment Soft Tissue Mobility TTP to L ant tib muscle belly and L fib longus muscle Assessment belly/tendon, mild edema noted to L lateral malleolus PT-OP-G Mobility & Gait Start: 02/08/25 15:37 Freq: Status: Active Protocol: Document 02/08/25 15:46 LUMBER KILN OPERATOR (Rec: 02/08/25 18:06 LUMBER KILN OPERATOR Laptop) OP Gait Assessment Comments Gait Comments Amb without AD, decreased L loading response and early toe off Stair Climbing Evaluation Comments Stair Climbing 4x6 stairs: Comments Ascend: Normal reciprocal pattern without rails Descend: Step to pattern leading with RLE with heavy reliance on BUEs d/t instability in R ankle PT-OP-K Range of Motion Start: 02/08/25 15:45 Freq: Status: Active Protocol: Document 02/08/25 15:46 LUMBER KILN OPERATOR (Rec: 02/08/25 18:06 LUMBER KILN OPERATOR Laptop) Knee Goniometric Range of Motion Knee ROM Limitations Comments WNL Ankle and Foot Goniometric Range of Motion Ankle and Foot ROM Limitations ROM Limitations Soft Tissue Tightness,Pain Comments L ankle active DF -10 degrees, passive DF 15 degrees R ankle active DF 3 degrees, passive DF 8 degrees L PF active 45 degrees R PF active 50 degrees L eversion active 28 degrees, inversion active 42 degrees R eversion active 28 degrees, inversion active 44 degrees PT-OP-M Strength Start: 02/08/25 15:45 Freq: Status: Active Protocol: Document 02/08/25 15:46 LUMBER KILN OPERATOR (Rec: 02/08/25 18:06 LUMBER KILN OPERATOR Laptop) Hip Strength Hip Manual Muscle Testing L Flexion (L2) 4- Good- Extension (S1) 4- Good- Abduction 4+ Good+ R Flexion (L2) 4 Good Extension (S1) 4 Good Abduction 4- Good- Knee Strength Knee Manual Muscle Testing L Flexion (S2) 4 Good Extension (L3) 5 Normal Comments pain free R Flexion (S2) 4+ Good+ Extension (L3) 5 Normal Ankle/Foot Strength Ankle and Foot Manual Muscle Testing L Dorsiflexion (L4) 4 Good Plantarflexion (S1) 4- Good- Inversion 4- Good- Eversion (S1) 5 Normal Comments eversion without pain, DF and inversion with pain R Dorsiflexion (L4) 4+ Good+ Plantarflexion (S1) 4+ Good+ Inversion 4+ Good+ Eversion (S1) 5 Normal PT-OP-Q Treatments Start: 02/08/25 15:45 Freq: Status: Active Protocol: Document 03/08/25 16:28 LUMBER KILN OPERATOR (Rec: 03/08/25 16:50 LUMBER KILN OPERATOR Laptop) Cardio Equipment Recumbent Stepper (Sci-Fit) Duration (Minutes) 5 Resistance L6 Seat Position 1 Other BLEs only for ankle ROM warm up Gym Equipment Shuttle Recovery BLE Details Deep squat for increased DF and L3 TB around knees Resistance 50#, 75#, 100# Shuttle Recovery Stable Platform Reps/Time x10 each Therapeutic Exercises Supine Exercises PF Supine Exercise Name active PF for ROM assessment Side left Reps/Minutes x5 Comments 49 degrees with restriction felt at tight ant tib DF Supine Exercise Name active DF for ROM assessment Side left Reps/Minutes x5 Comments 4 degrees PT-OP-T Assessment and Plan Start: 02/08/25 15:45 Freq: Status: Active Protocol: Document 03/08/25 16:28 LUMBER KILN OPERATOR (Rec: 03/08/25 16:50 LUMBER KILN OPERATOR Laptop) Physical Therapy Assessment Impairments Impairments Activity Tolerance,Balance,Edema,Functional Activities, Functional Mobility,Gait,Pain,ROM,Soft Tissue Mobility, Strength Goals 3 Impairment Pain on stairs Short Term Goal (STG Pt will descend 4x6 stairs with reciprocal pattern ) using B HRs with min impairment STG Duration 6 weeks Care Home Goal (LTG) Pt will descend 4x6 stairs with reciprocal pattern without HRs without impairment LTG Duration 12 weeks 2 Impairment L ankle strength Short Term Goal (STG Pt will perform L ankle SLS for 30s to improve L ankle ) strength and balance STG Duration 6 weeks Brick Cleaner Goal (LTG) Pt will perform L ankle SLS for 60s to improve L ankle strength and balance LTG Duration 12 weeks 1 Impairment L ankle ROM Short Term Goal (STG Pt will improve L ankle active DF to -3 degrees to ) improve function STG Duration 6 weeks Brick Cleaner Goal (LTG) Pt will improve L ankle active DF to 3 degrees to improve function LTG Duration 12 weeks Progress Towards Goals Progress Towards Progressing Toward Goals Goals Progress Comments improved ankle strength and tissue mobility Assessment Summary Assessment Pt tolerated B hip strengthening and endurance training this session, active DF improved to 4 degrees and active PF to 49 degrees. Physical Therapy Plan Frequency and Duration Frequency of 2x/Week Treatment Duration of 12 treatment (weeks) Plan of Care Start 02/08/25 Plan of Care End 05/03/25 Date Therapeutic Interventions Therapeutic Balance Training,Gait Training,Home Exercise Program, Interventions Joint Mobilizations,Manual Therapy,Neuromuscular Re- education,Patient/Caregiver Education,Soft Tissue Mobilization,Taping,Therapeutic Activities,Therapeutic Exercises Modalities Cold Pack/Ice Massage,Hot Packs,Infrared Therapy, Ultrasound Next Visit Focus/Plan Next Note Type Treatment Note Next Visit Plan cupping/STM to L ant tib to improve active PF, standing balance
--- NOTE | 2025-03-13 19:00 | PT.OTN ---
Current Diagnoses Unspecified injury of left ankle, initial encounter (03/13/25) Physical Therapy Treatment Note PT-OP-A Visit Information Start: 02/08/25 15:37 Freq: Status: Active Protocol: Document 03/13/25 16:20 ACCOUNT EXECUTIVE KEY ACCOUNTS (Rec: 03/13/25 16:31 ACCOUNT EXECUTIVE KEY ACCOUNTS Laptop) Out-Patient Physical Therapy Visit Information Visit Information Visit Type Progress Note Visit Start Time 16:20 Visit Stop Time 17:01 Visit Number 6 Number of AUTO OVERHAULER Visits 0 Evaluation Information Evaluation Date 02/08/25 Precautions Precautions None PT-OP-B Current Condition Start: 02/08/25 15:37 Freq: Status: Active Protocol: Document 02/08/25 15:46 ACCOUNT EXECUTIVE KEY ACCOUNTS (Rec: 02/08/25 18:06 ACCOUNT EXECUTIVE KEY ACCOUNTS Laptop) Current Condition History of Current Condition Onset Date 01/07/25 Current Complaints L ankle pain/instability History of Current Was trying to get something off of a tall cabinet, Condition jumped, and landed down on L ankle with pain. Has had multiple ankle sprains in B ankles from soccer in high school and can often walk them off but this time could not. Had a walking boot that she wore for 10 days per doctor, then bought a supportive TOMMIE brace that she wore but still feels very instable. Has a 1 year old baby at home, not currently working. Has 5 RITESH with L HR, 2 stairs into sons room with L HR. Prior Treatments and Imaging negative for fx Tests Treatment Goals Patient/Caregiver To be able to move around again without ankle feeling Goals unstable and being careful, including navigating stairs at home. 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 PT-OP-C Subjective Start: 02/08/25 15:37 Freq: Status: Active Protocol: Document 03/13/25 16:20 ACCOUNT EXECUTIVE KEY ACCOUNTS (Rec: 03/13/25 16:31 ACCOUNT EXECUTIVE KEY ACCOUNTS Laptop) OP-PT Subjective Patient Comments Patient Comments Pt reports ankle feels stronger over the weekend and without pain, feels really good. Current pain is 0/10 Patient Reported Improving Progress PT-OP-D Balance Start: 02/08/25 15:37 Freq: Status: Active Protocol: Document 03/13/25 16:20 ACCOUNT EXECUTIVE KEY ACCOUNTS (Rec: 03/13/25 17:01 ACCOUNT EXECUTIVE KEY ACCOUNTS Laptop) Balance Tests Single Limb Standing Single Limb- Left 57s PT-OP-F Manual Assessment Start: 02/08/25 15:37 Freq: Status: Active Protocol: Document 02/08/25 15:46 ACCOUNT EXECUTIVE KEY ACCOUNTS (Rec: 02/08/25 18:06 ACCOUNT EXECUTIVE KEY ACCOUNTS Laptop) Manual Assessments Soft Tissue Assessment Soft Tissue Mobility TTP to L ant tib muscle belly and L fib longus muscle Assessment belly/tendon, mild edema noted to L lateral malleolus PT-OP-G Mobility & Gait Start: 02/08/25 15:37 Freq: Status: Active Protocol: Document 02/08/25 15:46 ACCOUNT EXECUTIVE KEY ACCOUNTS (Rec: 02/08/25 18:06 ACCOUNT EXECUTIVE KEY ACCOUNTS Laptop) OP Gait Assessment Comments Gait Comments Amb without AD, decreased L loading response and early toe off Stair Climbing Evaluation Comments Stair Climbing 4x6 stairs: Comments Ascend: Normal reciprocal pattern without rails Descend: Step to pattern leading with RLE with heavy reliance on BUEs d/t instability in R ankle PT-OP-K Range of Motion Start: 02/08/25 15:45 Freq: Status: Active Protocol: Document 03/13/25 16:20 ACCOUNT EXECUTIVE KEY ACCOUNTS (Rec: 03/13/25 17:01 ACCOUNT EXECUTIVE KEY ACCOUNTS Laptop) Ankle and Foot Goniometric Range of Motion Ankle and Foot ROM Limitations Comments L ankle active DF 5 degrees, passive DF 17 degrees L PF active 50 degrees L eversion active 44 degrees, inversion active 46 degrees PT-OP-M Strength Start: 02/08/25 15:45 Freq: Status: Active Protocol: Document 03/13/25 16:20 ACCOUNT EXECUTIVE KEY ACCOUNTS (Rec: 03/13/25 17:01 ACCOUNT EXECUTIVE KEY ACCOUNTS Laptop) Hip Strength Hip Manual Muscle Testing L Flexion (L2) 4+ Good+ Extension (S1) 4+ Good+ Abduction 4+ Good+ Knee Strength Knee Manual Muscle Testing L Flexion (S2) 5 Normal Extension (L3) 5 Normal Ankle/Foot Strength Ankle and Foot Manual Muscle Testing L Dorsiflexion (L4) 4+ Good+ Plantarflexion (S1) 4+ Good+ Inversion 4+ Good+ Eversion (S1) 5 Normal Comments without pain PT-OP-Q Treatments Start: 02/08/25 15:45 Freq: Status: Active Protocol: Document 03/13/25 16:20 ACCOUNT EXECUTIVE KEY ACCOUNTS (Rec: 03/13/25 16:31 ACCOUNT EXECUTIVE KEY ACCOUNTS Laptop) Gym Equipment Shuttle Recovery 1LE Details LLE Resistance 50# Shuttle Recovery Stable Platform Reps/Time x20 BLE Details Deep squat for increased DF and L3 TB around knees Resistance 75# Shuttle Recovery Stable Platform Reps/Time 20x2 for warm up Therapeutic Activity Therapeutic Activity Stair Training Name ascend/descend 6 stairs Reps/Minutes 4x2 Comments ascend with normal reciprocal pattern without HRs, descends with reciprocal pattern without HRs but with L premature heel raise to avoid full DF while lowering opposite LE d/t weakness PT-OP-T Assessment and Plan Start: 02/08/25 15:45 Freq: Status: Active Protocol: Document 03/13/25 16:20 ACCOUNT EXECUTIVE KEY ACCOUNTS (Rec: 03/13/25 16:31 ACCOUNT EXECUTIVE KEY ACCOUNTS Laptop) Physical Therapy Assessment Impairments Impairments Activity Tolerance,Balance,Edema,Functional Activities, Functional Mobility,Gait,Pain,ROM,Soft Tissue Mobility, Strength Goals 3 Impairment Pain on stairs Short Term Goal (STG Pt will descend 4x6 stairs with reciprocal pattern ) using B HRs with min impairment Status: Met 03/13 STG Duration 6 weeks Pumping Station Engineer Goal (LTG) Pt will descend 4x6 stairs with reciprocal pattern without HRs without impairment Progressing: Met 03/13 Updated goal 03/13: Pt will ascend and descend 4x6 stairs with reciprocal pattern without HRs without impairment while carrying 25# weight for safe carrying of baby up and down stairs into home. LTG Duration 12 weeks 2 Impairment L ankle strength Short Term Goal (STG Pt will perform L ankle SLS for 30s to improve L ankle ) strength and balance Status: MET 03/13 STG Duration 6 weeks Pumping Station Engineer Goal (LTG) Pt will perform L ankle SLS for 60s to improve L ankle strength and balance Status: Progressing Updated goal 03/13: Pt will perform L ankle SLS for 60s on foam to improve L ankle strength and balance LTG Duration 12 weeks 1 Impairment L ankle ROM Short Term Goal (STG Pt will improve L ankle active DF to -3 degrees to ) improve function Status: MET 03/13 STG Duration 6 weeks [facility] Goal (LTG) Pt will improve L ankle active DF to 3 degrees to improve function Status: MET 03/13 Updated goal 03/13: Pt will improve B ankle active DF to 10 degrees to improve function LTG Duration 12 weeks Progress Towards Goals Progress Towards Progressing Toward Goals Goals Progress Comments all STGs met for strength, ROM, and balance. All goals updated Assessment Summary Assessment Pt demonstrates improvement in L ankle, knee, and hip strength at least 1-2 MMT points, improved active and passive L ankle DF and PF, improved L SLS, and improved patterning while descending stairs. Pt will benefit from continued skilled PT intervention to continue progressing towards updated LTGs, with focus on descending stairs, L glute med strengthening, and squat form. Pt will decrease frequency to 1x/wk beginning next week. Physical Therapy Plan Frequency and Duration Frequency of 2x/Week Treatment Duration of 12 treatment (weeks) Plan of Care Start 02/08/25 Date Plan of Care End 05/03/25 Date Therapeutic Interventions Therapeutic Balance Training,Gait Training,Home Exercise Program, Interventions Joint Mobilizations,Manual Therapy,Neuromuscular Re- education,Patient/Caregiver Education,Soft Tissue Mobilization,Taping,Therapeutic Activities,Therapeutic Exercises Modalities Cold Pack/Ice Massage,Hot Packs,Infrared Therapy, Ultrasound Next Visit Focus/Plan Next Note Type Treatment Note Next Visit Plan cupping to L ant tib, SLS on foam, step ups/downs on 6 stair with progressive carrying of weight, L glute med strengthening, body weight squats, double and single leg shuttle balance
--- NOTE | 2025-03-27 18:00 | PT.OTN ---
Current Diagnoses Unspecified injury of left ankle, initial encounter (03/27/25) Physical Therapy Treatment Note PT-OP-A Visit Information Start: 02/08/25 15:37 Freq: Status: Active Protocol: Document 03/27/25 16:18 AB (Rec: 03/27/25 17:57 AB [id number]) Out-Patient Physical Therapy Visit Information Visit Information Visit Type Treatment Note Visit Note [id number] Visit Start Time 16:18 Visit Stop Time 17:04 Visit Number 7 Number of CORPORATE COMMUNICATIONS INTERN Visits 1 Evaluation Information Evaluation Date 02/08/25 PT-OP-B Current Condition Start: 02/08/25 15:37 Freq: Status: Active Protocol: Document 02/08/25 15:46 ASSOCIATE SPA DIRECTOR (Rec: 02/08/25 18:06 ASSOCIATE SPA DIRECTOR Laptop) Current Condition History of Current Condition Onset Date 01/07/25 Current Complaints L ankle pain/instability History of Current Was trying to get something off of a tall cabinet, Condition jumped, and landed down on L ankle with pain. Has had multiple ankle sprains in B ankles from soccer in high school and can often walk them off but this time could not. Had a walking boot that she wore for 10 days per doctor, then bought a supportive TOMMIE brace that she wore but still feels very instable. Has a 1 year old baby at home, not currently working. Has 5 RITESH with L HR, 2 stairs into sons room with L HR. Prior Treatments and Imaging negative for fx Tests Treatment Goals Patient/Caregiver To be able to move around again without ankle feeling Goals unstable and being careful, including navigating stairs at home. 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 PT-OP-C Subjective Start: 02/08/25 15:37 Freq: Status: Active Protocol: Document 03/27/25 16:18 AB (Rec: 03/27/25 17:57 AB [id number]) OP-PT Subjective Patient Comments Patient Comments Patient reports the ankle is stiff, but is improving. Patient reports she was sore after walking on sand over the weekend. Patient rates ant/lat knee pain 2/10 ambulating into session. PT-OP-D Balance Start: 02/08/25 15:37 Freq: Status: Active Protocol: Document 03/13/25 16:20 ASSOCIATE SPA DIRECTOR (Rec: 03/13/25 17:01 ASSOCIATE SPA DIRECTOR Laptop) Balance Tests Single Limb Standing Single Limb- Left 57s PT-OP-F Manual Assessment Start: 02/08/25 15:37 Freq: Status: Active Protocol: Document 02/08/25 15:46 ASSOCIATE SPA DIRECTOR (Rec: 02/08/25 18:06 ASSOCIATE SPA DIRECTOR Laptop) Manual Assessments Soft Tissue Assessment Soft Tissue Mobility TTP to L ant tib muscle belly and L fib longus muscle Assessment belly/tendon, mild edema noted to L lateral malleolus PT-OP-G Mobility & Gait Start: 02/08/25 15:37 Freq: Status: Active Protocol: Document 02/08/25 15:46 ASSOCIATE SPA DIRECTOR (Rec: 02/08/25 18:06 ASSOCIATE SPA DIRECTOR Laptop) OP Gait Assessment Comments Gait Comments Amb without AD, decreased L loading response and early toe off Stair Climbing Evaluation Comments Stair Climbing 4x6 stairs: Comments Ascend: Normal reciprocal pattern without rails Descend: Step to pattern leading with RLE with heavy reliance on BUEs d/t instability in R ankle PT-OP-K Range of Motion Start: 02/08/25 15:45 Freq: Status: Active Protocol: Document 03/13/25 16:20 ASSOCIATE SPA DIRECTOR (Rec: 03/13/25 17:01 ASSOCIATE SPA DIRECTOR Laptop) Ankle and Foot Goniometric Range of Motion Ankle and Foot ROM Limitations Comments L ankle active DF 5 degrees, passive DF 17 degrees L PF active 50 degrees L eversion active 44 degrees, inversion active 46 degrees PT-OP-M Strength Start: 02/08/25 15:45 Freq: Status: Active Protocol: Document 03/13/25 16:20 ASSOCIATE SPA DIRECTOR (Rec: 03/13/25 17:01 ASSOCIATE SPA DIRECTOR Laptop) Hip Strength Hip Manual Muscle Testing L Flexion (L2) 4+ Good+ Extension (S1) 4+ Good+ Abduction 4+ Good+ Knee Strength Knee Manual Muscle Testing L Flexion (S2) 5 Normal Extension (L3) 5 Normal Ankle/Foot Strength Ankle and Foot Manual Muscle Testing L Dorsiflexion (L4) 4+ Good+ Plantarflexion (S1) 4+ Good+ Inversion 4+ Good+ Eversion (S1) 5 Normal Comments without pain PT-OP-Q Treatments Start: 02/08/25 15:45 Freq: Status: Active Protocol: Document 03/27/25 16:18 AB (Rec: 03/27/25 17:57 AB [id number]) Therapeutic Exercises Standing Exercises glute med isomertric Standing Exercise HEP Name Reps/Minutes one minute X 1 each LE Comments verbal and visual cues squat Standing Exercise HEP Name Side bilateral Resistance level 4 band above knees and 10 lb each UE Reps/Minutes X 3 then X 15 X 2 with band and weight Comments monitored for pain and form Gastroc Stretch Standing Exercise on stairs, gastroc and soleus Name Side bilateral Reps/Minutes 60s each stretch each LE X 2 Comments Verbal cues Heel Raises Standing Exercise Single leg on step Name Side left Resistance body weight Reps/Minutes 10x Comments verbal cues to lower heels slowly Manual Therapy Treatment Consent Patient gave verbal Yes consent for manual treatment Soft Tissue Mobilization Gastroc Body Location L gastroc and soelus Mobilization Type Cross-Friction,Instrument Assisted,Rolling Body Position Prone Comments Cupping with AROM DF and PF Ant Tib Body Location L ant tib and peroneals Mobilization Type Instrument Assisted Body Position Sitting Comments Cupping with DF PF, inv, ev Joint Mobilizations Talus Joint talus MWM L ankle Direction ant>post Grade IV Body Position Standing Reps/Duration X 10 X 3 Comments noted cavitation X 1 PT-OP-T Assessment and Plan Start: 02/08/25 15:45 Freq: Status: Active Protocol: Document 03/27/25 16:18 AB (Rec: 03/27/25 17:57 AB [id number]) Physical Therapy Assessment Goals 3 Impairment Pain on stairs Short Term Goal (STG Pt will descend 4x6 stairs with reciprocal pattern ) using B HRs with min impairment Status: Met 03/13 STG Duration 6 weeks Half-Way Goal (LTG) Pt will descend 4x6 stairs with reciprocal pattern without HRs without impairment Progressing: Met 03/13 Updated goal 03/13: Pt will ascend and descend 4x6 stairs with reciprocal pattern without HRs without impairment while carrying 25# weight for safe carrying of baby up and down stairs into home. LTG Duration 12 weeks 2 Impairment L ankle strength Short Term Goal (STG Pt will perform L ankle SLS for 30s to improve L ankle ) strength and balance Status: MET 03/13 STG Duration 6 weeks Chair Finisher Goal (LTG) Pt will perform L ankle SLS for 60s to improve L ankle strength and balance Status: Progressing Updated goal 03/13: Pt will perform L ankle SLS for 60s on foam to improve L ankle strength and balance LTG Duration 12 weeks 1 Impairment L ankle ROM Short Term Goal (STG Pt will improve L ankle active DF to -3 degrees to ) improve function Status: MET 03/13 STG Duration 6 weeks Half-Way Goal (LTG) Pt will improve L ankle active DF to 3 degrees to improve function Status: MET 03/13 Updated goal 03/13: Pt will improve B ankle active DF to 10 degrees to improve function LTG Duration 12 weeks Assessment Summary Assessment Patient reports having no pain end of session, comments she doesn't feel as stiff. Physical Therapy Plan Frequency and Duration Frequency of 2x/Week Treatment Duration of 12 treatment (weeks) Plan of Care Start 02/08/25 Date Plan of Care End 05/03/25 Date Next Visit Focus/Plan Next Note Type Treatment Note Next Visit Plan cupping to L ant tib, SLS on foam, step ups/downs on 6 stair with progressive carrying of weight, L glute med strengthening, body weight squats, double and single leg shuttle balance
--- NOTE | 2025-04-03 18:31 | PT.OTN ---
Current Diagnoses Unspecified injury of left ankle, initial encounter (04/03/25) Physical Therapy Treatment Note PT-OP-A Visit Information Start: 02/08/25 15:37 Freq: Status: Active Protocol: Document 04/03/25 16:19 ICHTHYOLOGY TEACHER (Rec: 04/03/25 17:06 ICHTHYOLOGY TEACHER Laptop) Out-Patient Physical Therapy Visit Information Visit Information Visit Type Treatment Note Visit Start Time 16:17 Visit Stop Time 17:00 Visit Number 8 Number of NETWORK MGR Visits 0 Evaluation Information Evaluation Date 02/08/25 PT-OP-B Current Condition Start: 02/08/25 15:37 Freq: Status: Active Protocol: Document 02/08/25 15:46 ICHTHYOLOGY TEACHER (Rec: 02/08/25 18:06 ICHTHYOLOGY TEACHER Laptop) Current Condition History of Current Condition Onset Date 01/07/25 Current Complaints L ankle pain/instability History of Current Was trying to get something off of a tall cabinet, Condition jumped, and landed down on L ankle with pain. Has had multiple ankle sprains in B ankles from soccer in high school and can often walk them off but this time could not. Had a walking boot that she wore for 10 days per doctor, then bought a supportive TOMMIE brace that she wore but still feels very instable. Has a 1 year old baby at home, not currently working. Has 5 RITESH with L HR, 2 stairs into sons room with L HR. Prior Treatments and Imaging negative for fx Tests Treatment Goals Patient/Caregiver To be able to move around again without ankle feeling Goals unstable and being careful, including navigating stairs at home. 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 PT-OP-C Subjective Start: 02/08/25 15:37 Freq: Status: Active Protocol: Document 04/03/25 16:19 ICHTHYOLOGY TEACHER (Rec: 04/03/25 17:06 ICHTHYOLOGY TEACHER Laptop) OP-PT Subjective Patient Comments Patient Comments Pt reports delayed onset soreness after last session but went away after 2 days. Still feels a little bit of tightness when moving ankle around but overall decreased pain. Current pain 1/10 to ant/lateral L ankle. PT-OP-D Balance Start: 02/08/25 15:37 Freq: Status: Active Protocol: Document 03/13/25 16:20 ICHTHYOLOGY TEACHER (Rec: 03/13/25 17:01 ICHTHYOLOGY TEACHER Laptop) Balance Tests Single Limb Standing Single Limb- Left 57s PT-OP-F Manual Assessment Start: 02/08/25 15:37 Freq: Status: Active Protocol: Document 02/08/25 15:46 ICHTHYOLOGY TEACHER (Rec: 02/08/25 18:06 ICHTHYOLOGY TEACHER Laptop) Manual Assessments Soft Tissue Assessment Soft Tissue Mobility TTP to L ant tib muscle belly and L fib longus muscle Assessment belly/tendon, mild edema noted to L lateral malleolus PT-OP-G Mobility & Gait Start: 02/08/25 15:37 Freq: Status: Active Protocol: Document 02/08/25 15:46 ICHTHYOLOGY TEACHER (Rec: 02/08/25 18:06 ICHTHYOLOGY TEACHER Laptop) OP Gait Assessment Comments Gait Comments Amb without AD, decreased L loading response and early toe off Stair Climbing Evaluation Comments Stair Climbing 4x6 stairs: Comments Ascend: Normal reciprocal pattern without rails Descend: Step to pattern leading with RLE with heavy reliance on BUEs d/t instability in R ankle PT-OP-K Range of Motion Start: 02/08/25 15:45 Freq: Status: Active Protocol: Document 03/13/25 16:20 ICHTHYOLOGY TEACHER (Rec: 03/13/25 17:01 ICHTHYOLOGY TEACHER Laptop) Ankle and Foot Goniometric Range of Motion Ankle and Foot ROM Limitations Comments L ankle active DF 5 degrees, passive DF 17 degrees L PF active 50 degrees L eversion active 44 degrees, inversion active 46 degrees PT-OP-M Strength Start: 02/08/25 15:45 Freq: Status: Active Protocol: Document 03/13/25 16:20 ICHTHYOLOGY TEACHER (Rec: 03/13/25 17:01 ICHTHYOLOGY TEACHER Laptop) Hip Strength Hip Manual Muscle Testing L Flexion (L2) 4+ Good+ Extension (S1) 4+ Good+ Abduction 4+ Good+ Knee Strength Knee Manual Muscle Testing L Flexion (S2) 5 Normal Extension (L3) 5 Normal Ankle/Foot Strength Ankle and Foot Manual Muscle Testing L Dorsiflexion (L4) 4+ Good+ Plantarflexion (S1) 4+ Good+ Inversion 4+ Good+ Eversion (S1) 5 Normal Comments without pain PT-OP-Q Treatments Start: 02/08/25 15:45 Freq: Status: Active Protocol: Document 04/03/25 16:19 ICHTHYOLOGY TEACHER (Rec: 04/03/25 17:06 ICHTHYOLOGY TEACHER Laptop) Therapeutic Exercises Standing Exercises squat Side bilateral Resistance L4 band above knees Reps/Minutes x10 Comments VC for post WS/form Other Exercises Jumping Other Exercise Name 1. lateral R and L 2. B feet forward/backward 2' Side bilateral Reps/Minutes x10 each Comments minimal pain x1 rep of jumping forward, all others without pain Therapeutic Activity Therapeutic Activity Stair Training Name ascend/descend 6 stairs Reps/Minutes 4x4 Comments 10lb weighted ball, ascend normal reciprocal pattern, descend reciprocal pattern, slight IR of LLE while descending stairs, reports 2/10 pain to L ankle Manual Therapy Treatment Consent Patient gave verbal Yes consent for manual treatment Soft Tissue Mobilization Gastroc Body Location L lateral gastroc and soelus Mobilization Type Instrument Assisted Body Position Prone Comments Cupping Ant Tib Body Location L ant tib and peroneals Mobilization Type Instrument Assisted Body Position Supine Comments cupping PT-OP-T Assessment and Plan Start: 02/08/25 15:45 Freq: Status: Active Protocol: Document 04/03/25 16:19 ICHTHYOLOGY TEACHER (Rec: 04/03/25 17:06 ICHTHYOLOGY TEACHER Laptop) Physical Therapy Assessment Goals 3 Impairment Pain on stairs Short Term Goal (STG Pt will descend 4x6 stairs with reciprocal pattern ) using B HRs with min impairment Status: Met 03/13 STG Duration 6 weeks Structural Steel Engineer Goal (LTG) Pt will descend 4x6 stairs with reciprocal pattern without HRs without impairment Progressing: Met 03/13 Updated goal 03/13: Pt will ascend and descend 4x6 stairs with reciprocal pattern without HRs without impairment while carrying 25# weight for safe carrying of baby up and down stairs into home. LTG Duration 12 weeks 2 Impairment L ankle strength Short Term Goal (STG Pt will perform L ankle SLS for 30s to improve L ankle ) strength and balance Status: MET 03/13 STG Duration 6 weeks Mcc Goal (LTG) Pt will perform L ankle SLS for 60s to improve L ankle strength and balance Status: Progressing Updated goal 03/13: Pt will perform L ankle SLS for 60s on foam to improve L ankle strength and balance LTG Duration 12 weeks 1 Impairment L ankle ROM Short Term Goal (STG Pt will improve L ankle active DF to -3 degrees to ) improve function Status: MET 03/13 STG Duration 6 weeks Mcc Goal (LTG) Pt will improve L ankle active DF to 3 degrees to improve function Status: MET 03/13 Updated goal 03/13: Pt will improve B ankle active DF to 10 degrees to improve function LTG Duration 12 weeks Progress Towards Goals Progress Towards Progressing Toward Goals Goals Assessment Summary Assessment Pt reports no pain at end of session, introduced plyometrics and tolerated well with pain only 1x when pushing off L ankle. Physical Therapy Plan Frequency and Duration Frequency of 2x/Week Treatment Duration of 12 treatment (weeks) Plan of Care Start 02/08/25 Date Plan of Care End 05/03/25 Date Therapeutic Interventions Therapeutic Balance Training,Gait Training,Home Exercise Program, Interventions Joint Mobilizations,Manual Therapy,Neuromuscular Re- education,Patient/Caregiver Education,Soft Tissue Mobilization,Taping,Therapeutic Activities,Therapeutic Exercises Modalities Cold Pack/Ice Massage,Hot Packs,Infrared Therapy, Ultrasound Next Visit Focus/Plan Next Note Type Treatment Note Next Visit Plan LLE step downs, side stepping with TB around knees, cupping to L ant tib and lateral gastroc/soleus, SLS on foam, plyometric activities
--- NOTE | 2025-04-10 16:51 | PT.OTN ---
Current Diagnoses Unspecified injury of left ankle, initial encounter (04/10/25) Physical Therapy Treatment Note PT-OP-A Visit Information Start: 02/08/25 15:37 Freq: Status: Active Protocol: Document 04/10/25 16:11 MB (Rec: 04/10/25 16:39 MB Desktop) Out-Patient Physical Therapy Visit Information Visit Information Visit Type Treatment Note Visit Start Time 16:11 Visit Stop Time 16:51 Visit Number 9 Number of LAMINATED PLASTICS ASSEMBLER AND GLUER Visits 0 Evaluation Information Evaluation Date 02/08/25 PT-OP-B Current Condition Start: 02/08/25 15:37 Freq: Status: Active Protocol: Document 02/08/25 15:46 FACULTY I ON CALL MEDICAL ASSISTANT (Rec: 02/08/25 18:06 FACULTY I ON CALL MEDICAL ASSISTANT Laptop) Current Condition History of Current Condition Onset Date 01/07/25 Current Complaints L ankle pain/instability History of Current Was trying to get something off of a tall cabinet, Condition jumped, and landed down on L ankle with pain. Has had multiple ankle sprains in B ankles from soccer in high school and can often walk them off but this time could not. Had a walking boot that she wore for 10 days per doctor, then bought a supportive TOMMIE brace that she wore but still feels very instable. Has a 1 year old baby at home, not currently working. Has 5 RITESH with L HR, 2 stairs into sons room with L HR. Prior Treatments and Imaging negative for fx Tests Treatment Goals Patient/Caregiver To be able to move around again without ankle feeling Goals unstable and being careful, including navigating stairs at home. 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 PT-OP-C Subjective Start: 02/08/25 15:37 Freq: Status: Active Protocol: Document 04/10/25 16:11 MB (Rec: 04/10/25 16:39 MB Desktop) OP-PT Subjective Patient Comments Patient Comments Pt has not had an increase in pain and she is moving around better. She has some tightness around her left calf and ankle. Her exercises are going well. Pt went on a long walk today. PT-OP-D Balance Start: 02/08/25 15:37 Freq: Status: Active Protocol: Document 03/13/25 16:20 FACULTY I ON CALL MEDICAL ASSISTANT (Rec: 03/13/25 17:01 FACULTY I ON CALL MEDICAL ASSISTANT Laptop) Balance Tests Single Limb Standing Single Limb- Left 57s PT-OP-F Manual Assessment Start: 02/08/25 15:37 Freq: Status: Active Protocol: Document 02/08/25 15:46 FACULTY I ON CALL MEDICAL ASSISTANT (Rec: 02/08/25 18:06 FACULTY I ON CALL MEDICAL ASSISTANT Laptop) Manual Assessments Soft Tissue Assessment Soft Tissue Mobility TTP to L ant tib muscle belly and L fib longus muscle Assessment belly/tendon, mild edema noted to L lateral malleolus PT-OP-G Mobility & Gait Start: 02/08/25 15:37 Freq: Status: Active Protocol: Document 02/08/25 15:46 FACULTY I ON CALL MEDICAL ASSISTANT (Rec: 02/08/25 18:06 FACULTY I ON CALL MEDICAL ASSISTANT Laptop) OP Gait Assessment Comments Gait Comments Amb without AD, decreased L loading response and early toe off Stair Climbing Evaluation Comments Stair Climbing 4x6 stairs: Comments Ascend: Normal reciprocal pattern without rails Descend: Step to pattern leading with RLE with heavy reliance on BUEs d/t instability in R ankle PT-OP-K Range of Motion Start: 02/08/25 15:45 Freq: Status: Active Protocol: Document 03/13/25 16:20 FACULTY I ON CALL MEDICAL ASSISTANT (Rec: 03/13/25 17:01 FACULTY I ON CALL MEDICAL ASSISTANT Laptop) Ankle and Foot Goniometric Range of Motion Ankle and Foot ROM Limitations Comments L ankle active DF 5 degrees, passive DF 17 degrees L PF active 50 degrees L eversion active 44 degrees, inversion active 46 degrees PT-OP-M Strength Start: 02/08/25 15:45 Freq: Status: Active Protocol: Document 03/13/25 16:20 FACULTY I ON CALL MEDICAL ASSISTANT (Rec: 03/13/25 17:01 FACULTY I ON CALL MEDICAL ASSISTANT Laptop) Hip Strength Hip Manual Muscle Testing L Flexion (L2) 4+ Good+ Extension (S1) 4+ Good+ Abduction 4+ Good+ Knee Strength Knee Manual Muscle Testing L Flexion (S2) 5 Normal Extension (L3) 5 Normal Ankle/Foot Strength Ankle and Foot Manual Muscle Testing L Dorsiflexion (L4) 4+ Good+ Plantarflexion (S1) 4+ Good+ Inversion 4+ Good+ Eversion (S1) 5 Normal Comments without pain PT-OP-Q Treatments Start: 02/08/25 15:45 Freq: Status: Active Protocol: Document 04/10/25 16:11 MB (Rec: 04/10/25 16:39 MB Desktop) Manual Therapy Treatment Consent Patient gave verbal Yes consent for manual treatment Other Other Manual Pt supine with head and legs supported with pillows: Treatments STM and positional released B vastus lateralis, quads, plantar flexors, plantar fascia, more tension left vastus lateralis. PT-OP-T Assessment and Plan Start: 02/08/25 15:45 Freq: Status: Active Protocol: Document 04/10/25 16:11 MB (Rec: 04/10/25 16:39 MB Desktop) Physical Therapy Assessment Goals 3 Impairment Pain on stairs Short Term Goal (STG Pt will descend 4x6 stairs with reciprocal pattern ) using B HRs with min impairment Status: Met 03/13 STG Duration 6 weeks Candy Spreader Helper Goal (LTG) Pt will descend 4x6 stairs with reciprocal pattern without HRs without impairment Progressing: Met 03/13 Updated goal 03/13: Pt will ascend and descend 4x6 stairs with reciprocal pattern without HRs without impairment while carrying 25# weight for safe carrying of baby up and down stairs into home. LTG Duration 12 weeks 2 Impairment L ankle strength Short Term Goal (STG Pt will perform L ankle SLS for 30s to improve L ankle ) strength and balance Status: MET 03/13 STG Duration 6 weeks Candy Spreader Helper Goal (LTG) Pt will perform L ankle SLS for 60s to improve L ankle strength and balance Status: Progressing Updated goal 03/13: Pt will perform L ankle SLS for 60s on foam to improve L ankle strength and balance LTG Duration 12 weeks 1 Impairment L ankle ROM Short Term Goal (STG Pt will improve L ankle active DF to -3 degrees to ) improve function Status: MET 03/13 STG Duration 6 weeks Care Home Goal (LTG) Pt will improve L ankle active DF to 3 degrees to improve function Status: MET 03/13 Updated goal 03/13: Pt will improve B ankle active DF to 10 degrees to improve function LTG Duration 12 weeks Assessment Summary Assessment Pt responds well to manual work today. Con't exercise progression and plan per primary PT next treatment date . Physical Therapy Plan Frequency and Duration Frequency of 2x/Week Treatment Duration of 12 treatment (weeks) Plan of Care Start 02/08/25 Date Plan of Care End 05/03/25 Date Therapeutic Interventions Therapeutic Balance Training,Gait Training,Home Exercise Program, Interventions Joint Mobilizations,Manual Therapy,Neuromuscular Re- education,Patient/Caregiver Education,Soft Tissue Mobilization,Taping,Therapeutic Activities,Therapeutic Exercises Modalities Cold Pack/Ice Massage,Hot Packs,Infrared Therapy, Ultrasound Next Visit Focus/Plan Next Note Type Treatment Note Next Visit Plan Con't per plan: LLE step downs, side stepping with TB around knees, cupping to L ant tib and lateral gastroc/ soleus, SLS on foam, plyometric activities
--- NOTE | 2025-04-25 19:02 | PT.OPDS ---
Current Diagnoses Unspecified injury of left ankle, initial encounter (04/25/25) Visit Care Team Role Provider Type Amelia Lutz MD Attending Provider Physician Family Provider Primary Care Provider Referring Provider Specialty: Family Practice BUSINESS INTELLIGENCE DEVELOPER Address: [address] [place], [address] Email: [email or web address] Visit Number Visit Number 10 Discharge Summary PT OP: Lower Back/Lower Extremity Start: 04/25/25 16:19 Freq: Status: Active Protocol: Document 04/25/25 16:19 BACKROOM ASSOCIATE (Rec: 04/25/25 17:06 BACKROOM ASSOCIATE Laptop) Out-Patient Physical Therapy Visit Information Visit Information Visit Type Discharge Summary Visit Start Time 16:20 Visit Stop Time 17:05 Visit Number 10 Number of VACCINE KEY CUSTOMER LEADER Visits 0 OP-PT Subjective Patient Comments Patient Comments Pt reports she currently feels no limitations in L ankle during functional activities and is ready to D/C at this appointment. Ankle and Foot Goniometric Range of Motion Ankle and Foot ROM Limitations Comments L ankle active DF 10 degrees without pain Hip Strength Hip Manual Muscle Testing L Flexion (L2) 4+ Good+ Extension (S1) 4+ Good+ Abduction 4+ Good+ R Flexion (L2) 4+ Good+ Extension (S1) 5 Normal Abduction 4+ Good+ Knee Strength Knee Manual Muscle Testing L Flexion (S2) 4+ Good+ Extension (L3) 5 Normal R Flexion (S2) 5 Normal Extension (L3) 5 Normal Ankle/Foot Strength Ankle and Foot Manual Muscle Testing L Dorsiflexion (L4) 4+ Good+ Plantarflexion (S1) 5 Normal R Dorsiflexion (L4) 5 Normal Plantarflexion (S1) 5 Normal Cardio Equipment Recumbent Stepper (Sci-Fit) Duration (Minutes) 6 Resistance L5 Seat Position 4 Other warm up, without pain Therapeutic Exercises Supine Exercises DF Supine Exercise Name L DF with emphasis on bringing up into neutral vs slight pronation Side left Reps/Minutes x10 Comments Added to HEP with HO for D/C Standing Exercises Soleus stretch Standing Exercise against wall Name Side left Reps/Minutes 1 min Comments added to HEP with HO for D/C 4 way hip Standing Exercise anchored on opposite leg above knees Name Side bilateral Resistance L4 TB, given L5 to take home to progress Reps/Minutes x10 Comments Added to HEP with HO for D/C Gastroc Stretch Standing Exercise runners stretch against wall Name Side left Reps/Minutes 1 min Comments VC for neutral angle of foot, added to HEP with HO for D/C Therapeutic Activity Therapeutic Activity Stair Training Name ascend/descend 6 stairs Reps/Minutes x4 Comments 25 lb weighted basket, ascend and descend with normal reciprocal pattern without pain or impairment, without UEs, ind Neuro Re-Education Treatment Balance Activities Foam Details L SLS Surface foam Reps/Duration 1 min Comments minimal sway, goal met Physical Therapy Assessment Goals 3 Impairment Pain on stairs Short Term Goal (STG Pt will descend 4x6 stairs with reciprocal pattern ) using B HRs with min impairment Status: Met 03/13 STG Duration 6 weeks MET Detention Goal (LTG) Pt will descend 4x6 stairs with reciprocal pattern without HRs without impairment Progressing: Met 03/13 Updated goal 03/13: Pt will ascend and descend 4x6 stairs with reciprocal pattern without HRs without impairment while carrying 25# weight for safe carrying of baby up and down stairs into home. 04/25: MET no difficulty or impairment LTG Duration 12 weeks MET 2 Impairment L ankle strength Short Term Goal (STG Pt will perform L ankle SLS for 30s to improve L ankle ) strength and balance Status: MET 03/13 STG Duration 6 weeks MET Detention Goal (LTG) Pt will perform L ankle SLS for 60s to improve L ankle strength and balance Status: Progressing Updated goal 03/13: Pt will perform L ankle SLS for 60s on foam to improve L ankle strength and balance 04/25: MET with minimal sway LTG Duration 12 weeks MET 1 Impairment L ankle ROM Short Term Goal (STG Pt will improve L ankle active DF to -3 degrees to ) improve function Status: MET 03/13 STG Duration 6 weeks MET Detention Goal (LTG) Pt will improve L ankle active DF to 3 degrees to improve function Status: MET 03/13 Updated goal 03/13: Pt will improve B ankle active DF to 10 degrees to improve function 04/25: MET 10 degrees LTG Duration 12 weeks MET Assessment Summary Assessment Pt has met all goals, new HEP given to maintain BLE ankle and hip strength and flexibility, pt has no questions and is ready for D/C. Physical Therapy Plan Discharge Physical Therapy Discharge Reasons Goals Met Discharge Comments See assessment, D/C from PT
== END 2025-04-30 11:07 | disposition home or self-care (01) ==
LOC: PHYS 16:15
PROVIDERS: Family Provider Family Medicine; PCP Family Medicine; Referring Provider Family Medicine; Visit Provider Family Medicine
DX: S99.912A Unspecified injury of left ankle, initial encounter (principal)
CPT/HCPCS: 97110; 97112; 97116; 97140; 97162; 97530